=== PATIENT | female | born 1990 | race Caucasian/White ===

== ENCOUNTER → 2019-05-25 15:01 | Outpatient (BNVA) | payer MEDICARE, SELFPAY | PROVIDERS: Family Provider Nurse Practitioner Family; PCP Nurse Practitioner Family; Referring Provider Nurse Practitioner; Visit Provider Obstetrics & Gynecology Female Pelvic Medicine and Reconstructive Surgery | DX: Z30.430 Encounter for insertion of intrauterine contraceptive device (principal); N92.0 Excessive and frequent menstruation with regular cycle; N94.4 Primary dysmenorrhea; E66.9 Obesity, unspecified | CPT/HCPCS: 81025 ==

== ENCOUNTER 2020-04-25 10:20 | Emergency (ER) | payer MEDICARE, MEDICAID, SELFPAY ==
[2020-04-25 11:03] VITALS: BP 131/97; PULSE 88; RESP 16; TEMP 36.2; O2SAT 98; BMI 31.2
[2020-04-25 11:08] VITALS: BP 131/97; PULSE 88; RESP 16; O2SAT 99
--- NOTE | 2020-04-25 11:21 | W.ED.NAVMDI ---
HPI - Nausea/Vomiting/Diarrhea General: Chief complaint: Urogenital-Female Stated complaint: Unable to pee/n/v/fatigue Time Seen by Provider: 04/25/20 11:10 Source: patient Mode of arrival: ambulatory Limitations: no limitations History of Present Illness: HPI Narrative: Patient is a 29-year-old female who presents to ED today with a complaint of nausea and vomiting. Patient tells me she has not ate in a month. Patient tells me she dry heaves and vomits after eating or drinking anything. Patient tells me she does smoke marijuana twice daily as prescribed with her green card. States she is tired and fatigued all the time. She also has a complaint of urinary retention. She states she has only urinated once daily over the past 2 weeks. States she has not urinated since yesterday morning. She does not complain of dysuria or hematuria. Patient does not complain of abdominal pain currently. She is having normal bowel movements. Denies history of . MD elicited complaint: nausea, vomiting and other (urinary retention ) Onset (ago): day(s) Description of vomiting: food contents and watery Associated nausea: Yes Associated abdominal pain: No Location of pain: None Exacerbating factors: eating Context: marijuana use Associated symtoms: Reports nausea; Denies change in vision, chest pain, dysuria, fatigue, headache(s), malaise, palpitations or syncope Review of Systems Const: Denies: fever(s), chills, body aches, fatigue or malaise Eyes: Denies: change in vision or blurry vision ENMT: Denies: throat pain or odynophagia Card: Denies: chest pain, palpitations, irregular heart rhythm, edema, lightheadedness, syncope or pre-syncope Resp: Denies: dyspnea, productive cough, non-productive cough, hemoptysis or chest congestion GI: Reports: nausea and vomiting; Denies: abdominal pain, hematemesis, heartburn, diarrhea, change in bowel habits, pain on defecation, change in stool character, hematochezia, melena or white/light colored stool : Reports: difficulty voiding; Denies: flank pain, dysuria, urinary frequency, urinary urgency, dribbling, hematuria, genital lesions, vaginal odor, vaginal bleeding, vaginal discharge or pelvic pain Musc: Denies: neck pain, back pain, extremity pain, extremity swelling, joint pain or joint swelling Skin/Breast: Denies: rash Neuro: Denies: headache(s), numbness in extremities, weakness in extremities or sensory changes PFSH ED PFSH: Medical History (Updated 04/25/20 @ 14:15 by BRIAN Simpson) History of hypertension Surgical History H/O left knee surgery History of back surgery History of loop recorder Family History Mother Psychiatric illness Diabetes Stroke Hypertension Sister Psychiatric illness Grandfather No problems noted. Denies family history of Cancer Social History Smoking and tobacco status: current every day smoker cigarettes Years cigarettes smoked: 15 Second hand smoke exposure: Yes Alcohol intake: never Lives independently: Yes Household members: significant other Current gender identity: Female Special my needs: No Physical Exam Const: COMMON NORMALS: no acute distress, patient oriented x3, no limitations and alert GENERAL APPEARANCE: cooperative NUTRITIONAL APPEARANCE: obese ORIENTATION/CONSCIOUSNESS: Yes awake, Yes oriented to person, Yes oriented to place and Yes oriented to time OTHER: hard of hearing HENMT: COMMON NORMALS: normocephalic and atraumatic HEAD & SCALP: normocephalic and atraumatic Resp: COMMON NORMALS: normal respiratory effort and clear to auscultation bilaterally AUSCULTATION: clear to auscultation bilaterally Cardio: COMMON NORMALS: regular rate and regular rhythm RATE: regular rate RHYTHM: regular rhythm GI: COMMON NORMALS: Normal to inspection, nondistended, normoactive bowel sounds present, Soft to palpation, non-tender, No hepatosplenomegaly present and no masses INSPECTION: Yes normal to inspection AUSCULTATION: Yes normoactive bowel sounds PALPATION: Yes Soft to palpation and Yes No hepatosplenomegaly present : COMMON NORMALS: Yes no CVA tenderness BLADDER/KIDNEY EXAM: Yes no CVA tenderness Back/Pelvis: COMMON NORMALS: no CVA tenderness Extremity: GENERAL: Yes normal exam except as noted Neuro: BROOK[place]NN COMA SCALE: document GCS findings Brook[place]nn coma scale eye opening: Spontaneous Brook[place]nn coma scale verbal response: Orientated [place] coma scale motor response: Obey commands [place] coma scale total score: 15 COMMON NORMALS: patient oriented x3 SENSORIUM/ORIENTATION: Yes alert, Yes oriented to person, Yes oriented to place and Yes oriented to time Skin: COMMON NORMALS: no rashes or lesions noted GENERAL SKIN EXAM: no rashes or lesions noted Course Reevaluation(s): Reevaluation #1: Patient reports nausea has improved. She is requesting Sprite. Has refused urine sample. Told patient we would have to place [facility] if we cannot document she can urinate on her own-she states she will try and give urine sample now. Vital Signs: Vital signs: Vital Signs Temperature 97.2 F L 04/25/20 11:03 Pulse Rate 98 04/25/20 14:21 Respiratory Rate 16 04/25/20 14:21 Blood Pressure 131/97 04/25/20 11:08 Pulse Oximetry 94 04/25/20 14:21 MDM - Nausea/Vomiting/Diarrhea MDM Narrative: Medical decision making narrative: Patient has not had any vomiting while here. She reports her nausea improved after taking Reglan. She held down a can of Sprite without difficulty. Patient's vital signs are non-concerning. Her lab work overall is benign. 3+ blood noted in her UA however patient is currently on her menstrual cycle. She was able to urinate on her own here. Questionable for concern for cyclic vomiting syndrome related to her marijuana use. Her fatigue and tiredness could also be related to cannabinoid use. I do not see any evidence for any form of acute infection at this time. She agrees to follow-up with her PCP if symptoms persist. Lab Data: Labs: Lab Results 04/25/20 04/25/20 04/25/20 Range/Units 11:36 11:36 11:36 WBC 7.9 (4.0-10.0) 10^3/ uL RBC 5.02 (4.1-5.3) 10^6/u L Hgb 14.8 (11.5-15.3) g/dL Hct 45.5 (37.0-47.0) % MCV 90.6 (81-99) fL MCH 29.5 (28.0-34.0) pg MCHC 32.5 (30.0-36.0) g/dL RDW 13.3 (12.1-15.1) % Plt Count 290 (130-400) 10^3/c mm MPV 9.4 (7.4-10.4) fL Neut % (Auto) 67.8 % Lymph % (Auto) 24.9 % Sawyer % (Auto) 6.2 % Eos % (Auto) 0.3 % Baso % (Auto) 0.4 % Neut # (Auto) 5.39 (1.8-7.7) 10^3/u L Lymph # (Auto) 2.0 (0.8-4.8) 10^3/u L Sawyer # (Auto) 0.5 (0.2-0.9) 10^3/u L Eos # (Auto) 0.0 (0.0-0.8) 10^3/u L Baso # (Auto) 0.0 (0.0-0.1) 10^3/u L Nucleated RBC % (a uto) 0 % Nucleated RBCs # 0.0 /100WBC Sodium 137 (136-145) mmol/L Potassium 3.5 (3.5-5.1) mmol/L Chloride 109 H (98-107) mmol/L Carbon Dioxide 22 (22-29) mmol/L Anion Gap 9.5 (5-19) BUN 7 (6-20) mg/dL Creatinine 0.7 (0.5-0.9) mg/dL GFR Calculation 98.3 (90-130) mL/min Glucose 68 (65-115) mg/dL Calculated Osmolal ity 280 L (285-295) mOsm/k g Calcium 8.7 (8.5-10.5) mg/dL Total Bilirubin 0.2 (0.15-1.2) mg/dL AST 15 (0-32) U/L ALT 18 (0-33) U/L Alkaline Phosphata se 123 H (35-105) IU/L Total Protein 6.8 (6.6-8.7) g/dL Albumin 4.1 (3.5-5.2) g/dL Globulin 2.7 (1.3-4.6) g/dL Lipase 34 (13-60) U/L HCG, Qual Negative (Negative) Urine Color (Yellow) Urine Appearance (CLEAR) Urine pH (5-7) Ur Specific Gravit y (1.005-1.030) Urine Protein (Negative) Urine Glucose (UA) (Normal) Urine Ketones (Negative) Urine Blood (Negative) Urine Nitrate (Negative) Urine Bilirubin (Negative) Urine Urobilinogen (Negative) mg/dL Ur Leukocyte Bri ase (Negative) Urine RBC (0-2) /hpf Urine WBC (0-5) /hpf Ur Squamous Epith Cells (0-5) /hpf Amorphous Sediment /hpf Urine Bacteria (NONE) /hpf 04/25/20 Range/Units 13:27 WBC (4.0-10.0) 10^3/ uL RBC (4.1-5.3) 10^6/u L Hgb (11.5-15.3) g/dL Hct (37.0-47.0) % MCV (81-99) fL MCH (28.0-34.0) pg MCHC (30.0-36.0) g/dL RDW (12.1-15.1) % Plt Count (130-400) 10^3/c mm MPV (7.4-10.4) fL Neut % (Auto) % Lymph % (Auto) % Sawyer % (Auto) % Eos % (Auto) % Baso % (Auto) % Neut # (Auto) (1.8-7.7) 10^3/u L Lymph # (Auto) (0.8-4.8) 10^3/u L Sawyer # (Auto) (0.2-0.9) 10^3/u L Eos # (Auto) (0.0-0.8) 10^3/u L Baso # (Auto) (0.0-0.1) 10^3/u L Nucleated RBC % (a uto) % Nucleated RBCs # /100WBC Sodium (136-145) mmol/L Potassium (3.5-5.1) mmol/L Chloride (98-107) mmol/L Carbon Dioxide (22-29) mmol/L Anion Gap (5-19) BUN (6-20) mg/dL Creatinine (0.5-0.9) mg/dL GFR Calculation (90-130) mL/min Glucose (65-115) mg/dL Calculated Osmolal ity (285-295) mOsm/k g Calcium (8.5-10.5) mg/dL Total Bilirubin (0.15-1.2) mg/dL AST (0-32) U/L ALT (0-33) U/L Alkaline Phosphata se (35-105) IU/L Total Protein (6.6-8.7) g/dL Albumin (3.5-5.2) g/dL Globulin (1.3-4.6) g/dL Lipase (13-60) U/L HCG, Qual (Negative) Urine Color Yellow (Yellow) Urine Appearance Clear (CLEAR) Urine pH 9 H (5-7) Ur Specific Gravit y 1.015 (1.005-1.030) Urine Protein Neg (Negative) Urine Glucose (UA) Norm (Normal) Urine Ketones Negative (Negative) Urine Blood 3+ H (Negative) Urine Nitrate Negative (Negative) Urine Bilirubin Neg (Negative) Urine Urobilinogen 1 H (Negative) mg/dL Ur Leukocyte Bri ase Negative (Negative) Urine RBC 0-4 H (0-2) /hpf Urine WBC None (0-5) /hpf Ur Squamous Epith Cells 0-4 H (0-5) /hpf Amorphous Sediment Trace /hpf Urine Bacteria 2+ H (NONE) /hpf Discharge Plan Discharge Patient Disposition: Home Clinical Impression: Nausea and vomiting Qualifiers: Vomiting type: unspecified Vomiting Intractability: non-intractable Qualified Code(s): R11.2 - Nausea with vomiting, unspecified Condition: Stable Prescriptions: New Reglan 10 mg tablet 10 mg PO Q6H PRN (Reason: nausea and vomiting) Qty: 14 RF: 0 No Action bupropion HCl [Wellbutrin SR] 150 mg tablet sustained-release 12 hr 150 mg PO BID RF: 0 levothyroxine 75 mcg tablet 75 mcg PO DAILY RF: 0 venlafaxine 75 mg capsule,extended release 24hr 75 mg PO BID RF: 0 acetazolamide 500 mg capsule, extended release 1,000 mg PO BID RF: 0 hydroxyzine HCl 10 mg tablet 10 - 20 mg PO TID PRN (Reason: Anxiety) RF: 0 Discharge Orders: Discharge ED (Routine); Ordered 04/25/20 Ordered By: Tawana Ortega Referrals: Yolis Gallagher [Primary Care Provider] - Patient Instructions: Acute Nausea and Vomiting (ED), Medicinal Use of Cannabis (ED), Opioid Safety Activity Restrictions/Additional Instructions: [facility] is committed to fighting the nationwide opiate epidemic. We are providing ALL patients with information regarding opiate safety. If you received opiate pain medication during your stay or if you received a prescription for opiate pain medication-please review this handout. If not, you may disregard. Thank you. Coding Level of Care Code ED Cyber Incident Handler for Katerina Fwpedro Exam Comprehensive
[2020-04-25 11:44] LABS: Basophils % 0.4 %; Eosinophils % 0.3 %; Hematocrit 45.5 % (37.0-47.0); Hemoglobin 14.8 g/dL (11.5-15.3); Lymphocytes % 24.9 %; Mean Corpuscular HGB Conc 32.5 g/dL (30.0-36.0); Mean Corpuscular Hemoglobin 29.5 pg (28.0-34.0); Mean Corpuscular Volume 90.6 fL (81-99); Mean Platelet Volume 9.4 fL (7.4-10.4); Monocytes # 0.5 10^3/uL (0.2-0.9); Monocytes % 6.2 %; Neutrophils # 5.39 10^3/uL (1.8-7.7); Neutrophils % 67.8 %; Nucleated Red Blood Cells % 0 %; Platelet Count 290 10^3/cmm (130-400); Red Blood Count 5.02 10^6/uL (4.1-5.3); Red Cell Distribution Width 13.3 % (12.1-15.1); White Blood Count 7.9 10^3/uL (4.0-10.0)
[2020-04-25] MEDS: LORazepam 2 mg/mL INJ 1 mL 1 MG IVP (11:52)
[2020-04-25] MEDS: metoclopramide 5 mg/mL SDV 2 mL 10 MG IVP (11:52)
[2020-04-25] MEDS: sodium chloride 0.9% 1,000 ML 999 ML IV (11:53)
[2020-04-25 11:59] LABS: Alanine Aminotransferase 18 U/L (0-33); Albumin Level 4.1 g/dL (3.5-5.2); Alkaline Phosphatase 123 IU/L (35-105); Anion Gap 9.5 (5-19); Aspartate Amino Transferase 15 U/L (0-32); Blood Urea Nitrogen 7 mg/dL (6-20); Calcium 8.7 mg/dL (8.5-10.5); Carbon Dioxide 22 mmol/L (22-29); Chloride 109 mmol/L (98-107); Globulin 2.7 g/dL (1.3-4.6); Glomerular Filtration Rate 98.3 mL/min (90-130); Glucose 68 mg/dL (65-115); Lipase 34 U/L (13-60); Osmolality Calculated 280 mOsm/kg (285-295); Potassium 3.5 mmol/L (3.5-5.1); Sodium 137 mmol/L (136-145); Total Bilirubin 0.2 mg/dL (0.15-1.2); Total Protein 6.8 g/dL (6.6-8.7)
[2020-04-25 12:02] LABS: HCG, Serum Qual Negative (Negative)
[2020-04-25 14:07] LABS: Add Urine Microscopic? YES; Bilirubin Urine Neg (Negative); Blood Urine 3+ (Negative); Glucose Urine UA Norm (Normal); Ketones Urine Negative (Negative); Leukocyte Esterase Urine Negative (Negative); Nitrate Urine Negative (Negative); Protein Urine Neg (Negative); Specific Gravity, Urine 1.015 (1.005-1.030); Urine Appearance Clear (CLEAR); Urine Color Yellow (Yellow); Urobilinogen Urine 1 mg/dL (Negative); pH Urine 9 (5-7)
[2020-04-25 14:08] LABS: Add Urine Culture? No; Amorphous Sediment Urine TRACE /hpf; Bacteria Urine 2+ /hpf; RBC Urine 0-4 /hpf (0-2); Squamous Epithelial Cell Urine 0-4 /hpf (0-5)
[2020-04-25 14:21] VITALS: PULSE 98; RESP 16; O2SAT 94
== END 2020-04-25 14:23 | disposition home or self-care (01) ==
PROVIDERS: Emergency Provider Physician Assistant; Family Provider Nurse Practitioner Family; PCP Nurse Practitioner Family
DX: R11.2 Nausea with vomiting, unspecified (principal); I10 Essential (primary) hypertension; F17.210 Nicotine dependence, cigarettes, uncomplicated
CPT/HCPCS: 51798; 80053; 81001; 83690; 84703; 85025; 96361; 96374; 96375; 99283; J2060; J2765; J7030

== ENCOUNTER 2020-05-11 08:50 | Outpatient (CLI) | payer MEDICARE, MEDICAID, SELFPAY ==
--- NOTE | 2020-05-11 | XR_ITS ---
WS: [id number] PROCEDURE: XR chest 2V* [id number] CLINICAL INFORMATION: HEMPTOSIS COMPARISON: July 07 2014 FINDINGS: Heart: Normal cardiac silhouette. Lungs: Lungs are clear. No consolidation or pleural fluid. Bones: Normal visualized bony structures. XR/XR chest 2V* [id number] IMPRESSION: Normal chest
--- NOTE | 2020-05-11 09:11 | CT_ITS ---
WS: [id number] CT ABDOMEN PELVIS TECHNIQUE: Contrast-enhanced CT of the abdomen and pelvis with coronal and sagittal reformatted image s. CLINICAL INFORMATION: NAUSEA WITH VOMITING, ABNORMAL WEIGHT LOSS COMPARISON: February 2011 DLP: 1136.[address] scans at [facility] use at least one of these dose optimization techniques: automat ed exposure control; mA and/or kV adjustment per patient size (includes targeted exams where dose is matched to clinical indication); or iterative reconstruction. FINDINGS: Mild diffuse fatty infiltration of the liver. Cholecystectomy clips. Normal portal vein and splenic v ein. Normal GE junction. Lung bases are well aerated. Normal pancreas. Adrenal glands are normal. Nor mal renal parenchymal enhancement. A few small renal cysts. No hydronephrosis in either kidney. Small bilateral renal cysts. Normal caliber abdominal aorta. Previously described prominent lymph nod es in the midabdomen and right lower quadrant suspicious for mesenteric adenitis have essentially res olved. Intrauterine device is new compared to the prior examination. IUD is slightly tilted and low-l sugar. Normal sigmoid colon. No evidence of high-grade small or large bowel obstruction. Low-lying cecum rig ht lower quadrant similar to previous. Left ovarian cyst measuring 2.4 CM. Mild disc bulging L4-5 wit h mild central canal stenosis. CT/CT abdomen pelvis w con* [id number] IMPRESSION: 1. Prior postoperative changes cholecystectomy and tubal ligation. 2. Left ovarian cyst measuring 2.4 cm smaller compared to previous. 3. IUD is new since the prior examination and tilted eccentric to the right an d slightly low-lying with tip near the internal cervical os. This can be follow ed up with ultrasound. 4. Mild diffuse fatty infiltration liver. 5. Normal renal parenchymal enhancement. No hydronephrosis. Small bilateral re nal cysts. 6. No evidence of high-grade small or large bowel obstruction. No free fluid i n the pelvis. 7. Previous described mesenteric adenitis in the right lower quadrant mid abdo men has resolved. 8. No other significant findings.
[2020-05-11] MEDS: iohexol 300 mg/mL 50 mL Btl PO (09:14)
[2020-05-11] MEDS: iohexol 300 mg/mL 100 mL Btl IV (10:36)
== END 2020-05-11 08:51 | disposition home or self-care (01) ==
PROVIDERS: PCP Nurse Practitioner Family; Visit Provider Nurse Practitioner Family
DX: R11.2 Nausea with vomiting, unspecified (principal); R63.4 Abnormal weight loss; R04.2 Hemoptysis; K76.0 Fatty (change of) liver, not elsewhere classified; N83.202 Unspecified ovarian cyst, left side; Z90.49 Acquired absence of other specified parts of digestive tract
CPT/HCPCS: 71046; 74177; Q9967

== ENCOUNTER → 2020-10-13 14:58 | Outpatient (BNVA) | payer OTHER, MEDICAID, SELFPAY | PROVIDERS: PCP Nurse Practitioner Family; Visit Provider Obstetrics & Gynecology | DX: Z30.431 Encounter for routine checking of intrauterine contraceptive device (principal) | CPT/HCPCS: 87070; 87205 ==

== ENCOUNTER 2020-12-24 15:51 | Emergency (ER) | payer OTHER, MEDICAID, SELFPAY ==
[2020-12-24 17:34] VITALS: BP 108/74; PULSE 76; RESP 18; O2SAT 98; BMI 36.1
--- NOTE | 2020-12-24 17:37 | XRR_ITS ---
PROCEDURE INFORMATION: Exam: XR Chest Exam date and time: 12/24/2020 5:37 PM Age: 30 years old Clinical indication: Dyspnea TECHNIQUE: Imaging protocol: XR of the chest. Views: 1 view. COMPARISON: CR XR chest 2V* [id number] 05/11/2020 10:57 AM FINDINGS: Tubes, catheters and devices: Loop recorder device overlies the lower left hemithorax. Lungs: Unremarkable. No consolidation. Pleural spaces: Unremarkable. No pleural effusion. No pneumothorax. Heart/Mediastinum: Unremarkable. No cardiomegaly. Bones/joints: Unremarkable. XR/XR chest 1V portable [id number] IMPRESSION: No evidence for acute cardiopulmonary disease. Radiation Dose CTDIVOL = (mGy): DLP = (mGy-cm)
--- NOTE | 2020-12-24 17:47 | ED_ITS ---
HPI - COVID General: Chief Complaint: COVID symptoms Stated Complaint: POSS COVID +/SOB/COUGH Time Seen by Provider: 12/24/20 17:46 Triage information: Has fever, cough or shortness of breath . Exposure to COVID + person last 14 days History of Present Illness: HPI Narrative: Patient has had illness since Friday. Patient has had persistent cough and congestion. Patient's daughter tested positive for COVID-19 on . Patient did have a PCR test done today that was sent out from the urgent care clinic. Patient came into the emergency room due to her persistent coughing. Patient appears mildly unwell and nontoxic. Skin is warm and dry. No apparent distress is noted. MD complaint: reported COVID exposure Prior covid testing: yes, results pending at [facility] location COVID 19 common symptoms: positive cough, non-productive cough and fatigue COVID Results: SARS-CoV-2 Antigen (Rapid) Negative (Negative) 12/24/20 18:08 12/24/20 SARS-CoV-2 RNA (RT-PCR) Pending 12/24/20 11:03 12/24/20 Review of Systems General: Reports: 10 or more systems reviewed and unremarkable except in HPI and below Const: Reports: fatigue Resp: Reports: non-productive cough PFSH ED PFSH: Medical History History of hypertension Surgical History H/O left knee surgery History of back surgery History of loop recorder Family History Mother Psychiatric illness Diabetes Stroke Hypertension Sister Psychiatric illness Grandfather No problems noted. Denies family history of Cancer Social History Smoking and tobacco status: current every day smoker cigarettes Years cigarettes smoked: 15 Alcohol intake: never Physical Exam Const: COMMON NORMALS: no acute distress and patient oriented x3 GENERAL APPEARANCE: cooperative HENMT: COMMON NORMALS: normocephalic, TM's normal bilaterally and Normal external nose present HEAD & SCALP: normal to inspection and normocephalic NOSE: Normal external nose present TYMPANIC MEMBRANE: TM's normal bilaterally MOUTH: Normal oral and palatal mucosa present THROAT: posterior oropharynx normal Eye: GENERAL EYE: appearance normal, both eyes and all related structures Neck/C-Spine: COMMON NORMALS: full ROM Lymph: LYMPHATIC: no lymphadenopathy noted Chest: COMMONS NORMALS: normal inspection of the chest Resp: COMMON NORMALS: normal respiratory effort EFFORT & INSPECTION: Yes able to speak in complete sentences Cardio: COMMON NORMALS: regular rate and regular rhythm RATE: regular rate RHYTHM: regular rhythm GI: COMMON NORMALS: non-tender Extremity: COMMON NORMALS: normal to inspection Neuro: COMMON NORMALS: patient oriented x3 and moves all extremities Psych: COMMON NORMALS: mental status grossly normal and cooperative Skin: COMMON NORMALS: no rashes or lesions noted GENERAL SKIN EXAM: no rashes or lesions noted Course Vital Signs: Vital signs: Vital Signs Pulse Rate 72 12/24/20 18:15 Respiratory Rate 18 12/24/20 17:34 Blood Pressure 108/74 12/24/20 17:34 Pulse Oximetry 98 12/24/20 18:21 MDM - COVID MDM Narrative: Medical decision making narrative: 30-year-old female comes in today for complaints of cough and wheezing. Patient is concerned that she may have COVID-19. Patient appears mildly unwell but not toxic. Patient was screen ed at urgent care and has a outstanding PCR test. Patient was started on some albuterol. On exam lungs are clear to auscultation except for occasional expiratory wheeze. Patient does smoke routinely. Skin is warm and dry. Vital signs are normal. Differential diagnosis includes not limited to COVID-19, pneumonia, bronchitis. Chest x-ray noted no signs of pneumonia. COVID-19 antigen test was negative. Reviewed exam with patient recommended awaiting PCR COVID-19 test for final diagnosis. Encourage patient to drink plenty of fluids and treat for bronchitis. Patient stated understanding and agreed to plan. Lab Data: Labs: Lab Results 12/24/20 18:08 SARS-CoV-2 Ag (Rap id) Negative (Negative) COVID Results: SARS-CoV-2 Antigen (Rapid) Negative (Negative) 12/24/20 18:08 12/24/20 SARS-CoV-2 RNA (RT-PCR) Pending 12/24/20 11:03 12/24/20 Discharge Plan Discharge Patient Disposition: Home Clinical Impression: Bronchitis Condition: Stable Prescriptions: No Action albuterol sulfate [Ventolin HFA] 90 mcg/actuation HFA aerosol inhaler 2 puff inhalation Q6H PRN (Reason: shortness of breath or wheezing) Qty: 8.5 RF: 0 levothyroxine 75 mcg tablet 75 mcg PO DAILY RF: 0 prednisone 20 mg tablet 40 mg PO DAILY 5 Days Qty: 10 RF: 0 venlafaxine 75 mg capsule,extended release 24hr 75 mg PO BID RF: 0 acetazolamide 500 mg capsule, extended release 1,000 mg PO BID RF: 0 Discharge Orders: Discharge ED (Routine); Ordered 12/24/20 Ordered By: Antonio Ritter Referrals: Olena Zamora FNP [Primary Care Provider] - Discharge Diet: Usual diet Discharge Activity: Increase activity as tolerated Patient Instructions: Acute Bronchitis (ED), Opioid Safety Activity Restrictions/Additional Instructions: Use albuterol as needed for shortness of breath and cough. Drink plenty of water. Follow-up with primary care as needed. Return to the ED for new concerns. Stand Alone Forms: Work/School Release Coding Level of Care Code ED Utility Gelatin Maker for Otisg Fwd Exam Comprehensive
[2020-12-24 18:15] VITALS: PULSE 72; O2SAT 97
[2020-12-24 18:21] VITALS: O2SAT 98
[2020-12-24 18:37] LABS: SARS Covid-2 Antigen Negative (Negative)
[2020-12-24 19:28] VITALS: BP 116/74; PULSE 74; RESP 18; O2SAT 98
== END 2020-12-24 19:25 | disposition home or self-care (01) ==
PROVIDERS: Emergency Provider Nurse Practitioner Family; PCP Nurse Practitioner Family
DX: J40 Bronchitis, not specified as acute or chronic (principal); Z20.822 Contact with and (suspected) exposure to COVID-19
CPT/HCPCS: 71045; 87426; 87635; 99282

== ENCOUNTER → 2021-03-11 19:43 | Outpatient (BNVA) | payer OTHER, MEDICAID, SELFPAY | PROVIDERS: PCP Nurse Practitioner Family; Visit Provider Nurse Practitioner | DX: Z20.822 Contact with and (suspected) exposure to COVID-19 (principal) | CPT/HCPCS: 87635 ==

== ENCOUNTER 2021-07-16 09:13 | Outpatient (CLI) | payer OTHER, MEDICAID, SELFPAY ==
--- NOTE | 2021-07-16 09:26 | XR_ITS ---
WS: [id number] LUMBAR SPINE: 5 VIEWS TECHNIQUE: AP, obliques, lateral and L5-S1 spot. HISTORY: LOW BACK PAIN COMPARISON: 11/30/2015 Very minimal LEFT curvature lumbar spine is similar to the prior examinations. Pedicles are all ident ified. Posterior alignment is normal. No fracture. No neuroforaminal stenosis or osteophyte encroachm ent. No loss of disc space or vertebral body height. Mild bilateral SI joint sclerosis. Increasing sclerosis RIGHT SI joint. Progressed since the prior st udy. Prior cholecystectomy. XR/XR lumbar spine min 4V [id number] IMPRESSION: 1. Minimal levoscoliosis lumbar spine. Similar to prior studies. 2. Increasing sclerosis and narrowing involving the RIGHT SI joint and to a le sser extent the LEFT SI joint. Correlate for possible psoriatic arthritis or in flammatory arthritides. 3. Prior cholecystectomy.
--- NOTE | 2021-07-16 09:32 | XR_ITS ---
WS: [id number] LEFT KNEE: 3 VIEW(S) TECHNIQUE: AP, oblique(s) and lateral. HISTORY: PAIN IN LEFT KNEE COMPARISON: 05/28/2011 No fracture or dislocation. Mild tricompartment osteoarthritis and joint space narrowing with marginal osteophytes. Mild valgus d eformity. No joint effusion. No soft tissue abnormality. XR/XR knee LT 3V* [id number] IMPRESSION: Mild tricompartment osteoarthritis.
== END 2021-07-16 09:14 | disposition home or self-care (01) ==
PROVIDERS: PCP Nurse Practitioner Family; Visit Provider Nurse Practitioner Family
DX: M54.50 Low back pain, unspecified (principal); M25.562 Pain in left knee
CPT/HCPCS: 72110; 73562

== ENCOUNTER → 2021-11-22 11:06 | Outpatient (BNVA) | payer MEDICARE, MEDICAID, SELFPAY | PROVIDERS: PCP Nurse Practitioner Family; Visit Provider Internal Medicine | DX: R76.8 Other specified abnormal immunological findings in serum (principal); M25.50 Pain in unspecified joint; I51.9 Heart disease, unspecified; R94.31 Abnormal electrocardiogram [ECG] [EKG]; Z11.59 Encounter for screening for other viral diseases | CPT/HCPCS: 80053; 81003; 82550; 82607; 82784; 83516; 83735; 84100; 84443; 85025; 85613; 85651; 85730; 86140; 86146; 86147; 86148; 86160; 86162; 86235; 86255; 86376; 86431; 86704; 86803; 87340; 99204 ==

== ENCOUNTER 2021-11-23 07:49 | Outpatient (CLI) | payer MEDICARE, MEDICAID, SELFPAY ==
--- NOTE | 2021-11-23 08:00 | MR_ITS ---
WS: [id number] MRI HEAD WITHOUT CONTRAST TECHNIQUE: Sagittal T1, T2 axial, T2 axial FLAIR, axial and coronal T1 images, axial susceptibility w eighted imaging, axial diffusion weighted images, and coronal T2 images were obtained. CLINICAL INFORMATION: R56.9 - Unspecified convulsions COMPARISON: CT 3 019 And MRI 2018 FINDINGS: No evidence of restricted diffusion to suggest acute ischemia. Ventricles system and basal cisterns a re patent. Normal mckeon-white differentiation. Normal posterior fossa. Normal vascular flow voids at t he skull base. No extra-axial fluid collections. No evidence of mass or mass effect. A few tiny foci of T2 hyperintensity in the subcortical white matter better visualized on the MRI in 2018 is unchange d. This is of doubtful clinical significance. No evidence of progression. Mild mucosal thickening in the ethmoid air cells. Mastoid air cells are well aerated. No hemosiderin on the susceptibly weighted images. Normal optic chiasm and pituitary infundibulum. Normal cavernous sinuses and Meckel's cave. Temporal lobes and hippocampal formations are normal in appearance. Normal cerebellar tonsils. Inferior frontal lobes and cingulate gyrus appear normal. MR/MR head wo con* [id number] IMPRESSION: No remarkable changes compared to the MRI in 2018. 1. No evidence of restricted diffusion to suggest acute ischemia. 2. No suspicious intracranial signal abnormalities. Normal mckeon-white differen tiation. 3. Paranasal sinuses and mastoid air cells are well aerated. Mild mucosal thic kening in the ethmoid air cells. 4. No hemosiderin on the susceptibly weighted images. 5. Temporal lobes and hippocampal formations are normal in appearance. No evid ence of mesial temporal sclerosis.
== END 2021-11-23 07:50 | disposition home or self-care (01) ==
PROVIDERS: PCP Nurse Practitioner Family; Visit Provider Specialist
DX: R56.9 Unspecified convulsions (principal)
CPT/HCPCS: 70551

== ENCOUNTER → 2021-12-03 10:13 | Outpatient (BNVA) | payer MEDICARE, MEDICAID, SELFPAY | PROVIDERS: PCP Nurse Practitioner Family; Visit Provider Specialist | DX: G43.009 Migraine without aura, not intractable, without status migrainosus (principal); F41.9 Anxiety disorder, unspecified; F43.10 Post-traumatic stress disorder, unspecified; R20.0 Anesthesia of skin; J45.909 Unspecified asthma, uncomplicated; X58.XXXS Exposure to other specified factors, sequela; F17.200 Nicotine dependence, unspecified, uncomplicated | CPT/HCPCS: 99214 ==

== ENCOUNTER → 2021-12-19 09:42 | Outpatient (BNVA) | payer MEDICARE, MEDICAID, SELFPAY | PROVIDERS: PCP Nurse Practitioner Family; Visit Provider Internal Medicine | DX: M54.50 Low back pain, unspecified (principal); R20.0 Anesthesia of skin; Z79.899 Other long term (current) drug therapy; R76.8 Other specified abnormal immunological findings in serum; M25.50 Pain in unspecified joint; G43.711 Chronic migraine without aura, intractable, with status migrainosus; E83.39 Other disorders of phosphorus metabolism; R07.81 Pleurodynia | CPT/HCPCS: 71046; 72040; 99214 ==

== ENCOUNTER 2022-01-12 08:20 | Emergency (ER) | payer MEDICARE, MEDICAID, SELFPAY ==
--- NOTE | 2022-01-12 08:32 | XRR_ITS ---
PROCEDURE INFORMATION: Exam: XR Chest Exam date and time: 01/12/2022 9:00 AM Age: 31 years old Clinical indication: Pain; Chest pressure; Additional info: Cp TECHNIQUE: Imaging protocol: Radiologic exam of the chest. Views: 1 view. COMPARISON: CR XR chest 2V* [id number] 12/19/2021 9:42 AM FINDINGS: Tubes, catheters and devices: Loop recording device projects over the left hemithorax. Lungs: Unremarkable. No consolidation. Pleural spaces: Unremarkable. No pleural effusion. No pneumothorax. Heart/Mediastinum: Unremarkable. No cardiomegaly. Bones/joints: Unremarkable. XR/XR chest 1V portable [id number] IMPRESSION: No acute cardiopulmonary abnormality.
[2022-01-12 08:33] VITALS: BP 142/76; PULSE 79; RESP 18; TEMP 36.6; O2SAT 100
--- NOTE | 2022-01-12 08:33 | W.ED.CHESTPA ---
HPI - Chest Pain General: Chief Complaint: Chest Pain Stated Complaint: cp Time Seen by Provider: 01/12/22 08:29 Source: patient Mode of arrival: ambulatory Limitations: no limitations History of Present Illness: 31-year-old female who states she is having chest pain for last 2 days. States the pain is sharp in nature to her right chest she denies any worsening improving factors. She has a history of long QT prolongation. She denies any diaphoresis denies any vomiting denies any diarrhea denies any radiation of her pain. Associated symptoms: Deny abdominal pain, dyspnea, fever(s), nausea or vomiting Review of Systems Const: Denies: fever(s), chills, body aches or change in appetite Eyes: Denies: blurry vision or eye discomfort ENMT: Denies: throat pain or dental pain Card: Reports: chest pain Resp: Denies: dyspnea GI: Denies: abdominal pain, nausea, vomiting or diarrhea : Denies: dysuria Musc: Denies: neck pain or back pain Skin/Breast: Denies: rash Neuro: Denies: headache(s) Psych: Denies: depression Gee/Lymph: Denies: easy bruising All/Imm: Denies: urticaria PFSH ED PFSH: Medical History History of hypertension Psychiatric care Surgical History H/O left knee surgery History of back surgery History of loop recorder Family History Mother Psychiatric illness Diabetes Stroke Hypertension Sister Psychiatric illness Grandfather No problems noted. 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 Pets and animals: Yes Physical Exam Const: COMMON NORMALS: no acute distress, patient oriented x3 and healthy appearing HENMT: COMMON NORMALS: normocephalic and atraumatic HEAD & SCALP: normocephalic and atraumatic Eye: COMMON NORMALS: Equal, round and reactive pupils present and EOMs intact bilaterally PUPIL: Yes Equal, round and reactive pupils present Neck/C-Spine: COMMON NORMALS: full ROM and supple Chest: COMMONS NORMALS: normal inspection of the chest and normal palpation of entire chest wall Resp: COMMON NORMALS: normal respiratory effort, No retractions, No use of accessory muscles and clear to auscultation bilaterally AUSCULTATION: clear to auscultation bilaterally Cardio: COMMON NORMALS: regular rate, regular rhythm and No murmurs present (Cardio) RATE: regular rate RHYTHM: regular rhythm GI: COMMON NORMALS: Normal to inspection, nondistended, normoactive bowel sounds present, Soft to palpation, non-tender and no masses PALPATION: Yes Soft to palpation Extremity: COMMON NORMALS: normal to inspection and full ROM Neuro: COMMON NORMALS: patient oriented x3, moves all extremities and no focal motor deficits Psych: COMMON NORMALS: mental status grossly normal, Normal thought process present and cooperative THOUGHT PROCESS: Normal thought process present Skin: COMMON NORMALS: no rashes or lesions noted and no wounds GENERAL SKIN EXAM: no rashes or lesions noted Course Vital Signs: Vital signs: Vital Signs Temperature 97.9 F 01/12/22 08:33 Pulse Rate 66 01/12/22 09:18 Respiratory Rate 23 H 01/12/22 09:18 Blood Pressure 125/88 01/12/22 09:18 Pulse Oximetry 98 01/12/22 09:18 Oxygen Delivery Me thod 01/12/22 09:18 MDM - Chest Pain Medical Decision Making Patient presents here with foot pain likely from gout she has no new injuries her x-rays here are normal we will place her on colchicine patient is to follow-up PCP and return if worsening. Lab Data : 01/12/22 08:50 01/12/22 08:50 Laboratory Results WBC 7.4 10^3/uL (4.0-10.0) 01/12/22 08:50 RBC 5.12 10^6/uL (4.1-5.3) 01/12/22 08:50 Hgb 14.4 g/dL (11.5-15.3) 01/12/22 08:50 Hct 44.6 % (37.0-47.0) 01/12/22 08:50 MCV 87.1 fl (81-99) 01/12/22 08:50 MCH 28.1 pg (28.0-34.0) 01/12/22 08:50 MCHC 32.3 g/dL (30.0-36.0) 01/12/22 08:50 RDW 13.8 % (12.1-15.1) 01/12/22 08:50 Plt Count 261 10^3/cmm (130-400) 01/12/22 08:50 MPV 9.6 fL (7.4-10.4) 01/12/22 08:50 Neut % (Auto) 67.1 % 01/12/22 08:50 Lymph % (Auto) 26.3 % 01/12/22 08:50 [place] % (Auto) 5.8 % 01/12/22 08:50 Eos % (Auto) 0.0 % 01/12/22 08:50 Baso % (Auto) 0.4 % 01/12/22 08:50 Neut # (Auto) 4.99 10^3/uL (1.8-7.7) 01/12/22 08:50 Lymph # (Auto) 2.0 10^3/uL (0.8-4.8) 01/12/22 08:50 [place] # (Auto) 0.4 10^3/uL (0.2-0.9) 01/12/22 08:50 Eos # (Auto) 0.0 10^3/uL (0.0-0.8) 01/12/22 08:50 Baso # (Auto) 0.0 10^3/uL (0.0-0.1) 01/12/22 08:50 Nucleated RBC % (auto) 0 % 01/12/22 08:50 Nucleated RBCs # 0.0 /100WBC 01/12/22 08:50 Sodium 139 mmol/L (136-145) 01/12/22 08:50 Potassium 3.6 mmol/L (3.5-5.1) 01/12/22 08:50 Chloride 106 mmol/L (98-107) 01/12/22 08:50 Carbon Dioxide 21 mmol/L (22-29) L 01/12/22 08:50 Anion Gap 15.6 (5-19) 01/12/22 08:50 BUN 7 mg/dL (6-20) 01/12/22 08:50 Creatinine 0.7 mg/dL (0.5-0.9) 01/12/22 08:50 GFR Calculation 97.0 mL/min (90-130) 01/12/22 08:50 Glucose 82 mg/dL (65-115) 01/12/22 08:50 Calculated Osmolality 285 mOsm/kg (285-295) 01/12/22 08:50 Calcium 9.2 mg/dL (8.5-10.5) 01/12/22 08:50 Total Bilirubin 0.5 mg/dL (0.15-1.2) 01/12/22 08:50 AST 13 U/L (0-32) 01/12/22 08:50 ALT 12 U/L (0-33) 01/12/22 08:50 Alkaline Phosphatase 120 U/L (35-105) H 01/12/22 08:50 Troponin T Baseline 6 ng/L (0-10) 01/12/22 08:50 Total Protein 6.9 g/dL (6.6-8.7) 01/12/22 08:50 Albumin 4.4 g/dL (3.5-5.2) 01/12/22 08:50 Globulin 2.5 g/dL (1.3-4.6) 01/12/22 08:50 Lipase 23 U/L (13-60) 01/12/22 08:50 EKG Data EKG 1: I personally reviewed and interpreted this EKG as follows: EKG interpretation date: 01/12/22 EKG interpretation time: 08:50 Interpretation: nsr hr [address] or t wave abnormalities qrs 94 qtc 459 Discharge Plan Discharge Patient Disposition: Home Clinical Impression: Chest pain Condition: Stable Prescriptions: No Action levothyroxine 75 mcg tablet 75 mcg PO DAILY topiramate 100 mg tablet See Rx Instructions .ROUTE .COMPLEX Qty: 90 0RF Dose Instruction: TAKE 1 TABLET(100 MG) BY MOUTH DAILY Rx Instructions: TAKE 1 TABLET(100 MG) BY MOUTH DAILY propranolol 10 mg tablet 10 mg PO BID 90 Days Qty: 180 3RF albuterol sulfate [Ventolin HFA] 90 mcg/actuation HFA aerosol inhaler 2 puff inhalation Q6H PRN (Reason: shortness of breath or wheezing) Qty: 8.5 0RF bupropion HCl [Wellbutrin SR] 200 mg tablet sustained-release 12 hr 200 mg PO DAILY potassium, sodium phosphates [Phos-NaK] 280-160-250 mg powder in packet 1 packet PO QID Qty: 30 0RF Discharge Orders: Discharge ED (Routine); Ordered 01/12/22 Ordered By: Brittany Capellan Referrals: Zamora,Olena, TANK CALIBRATOR [Primary Care Provider] - Discharge Diet: Advance as tolerated Discharge Activity: Resume usual activity Patient Instructions: Chest Pain (ED) Coding Level of Care Code ED Commercial Accountant for Chg Fwd Exam Comprehensive
--- NOTE | 2022-01-12 08:50 | ECG_ITS ---
[facility] Test Date: 2022-01-12 Pat Name: Dory Howard Department: Room: Gender: Female High Lighter: : 1990 Requested By: Brittany Capellan Order Number: [id number] Jason MD: Theresa Marin M.D. Measurements Intervals [place] Rate: 86 P: 72 MA: 128 QRS: 75 QRSD: 94 T: 82 QT: 415 QTc: 499 Interpretive Statements SINUS RHYTHM WITH SINUS ARRHYTHMIA NONSPECIFIC T-WAVE ABNORMALITY Compared to ECG 10/19/2014 16:25:10 T-wave abnormality now present Prolonged QT interval no longer present Electronically Signed On 01-12-2022 10:50:27 CDT by Theresa Marin M.D. [id number]
[2022-01-12 09:05] VITALS: RESP 14
[2022-01-12] MEDS: HYDROmorphone 1 mg/mL INJ 1 mL IVP (09:05)
[2022-01-12 09:06] LABS: Basophils % 0.4 %; Hematocrit 44.6 % (37.0-47.0); Hemoglobin 14.4 g/dL (11.5-15.3); Lymphocytes % 26.3 %; Mean Corpuscular HGB Conc 32.3 g/dL (30.0-36.0); Mean Corpuscular Hemoglobin 28.1 pg (28.0-34.0); Mean Corpuscular Volume 87.1 fl (81-99); Mean Platelet Volume 9.6 fL (7.4-10.4); Monocytes # 0.4 10^3/uL (0.2-0.9); Monocytes % 5.8 %; Neutrophils # 4.99 10^3/uL (1.8-7.7); Neutrophils % 67.1 %; Nucleated Red Blood Cells % 0 %; Platelet Count 261 10^3/cmm (130-400); Red Blood Count 5.12 10^6/uL (4.1-5.3); Red Cell Distribution Width 13.8 % (12.1-15.1); White Blood Count 7.4 10^3/uL (4.0-10.0)
[2022-01-12] MEDS: ondansetron 2 mg/ML SDV 2 mL 4 MG IVP (09:06)
[2022-01-12 09:18] VITALS: BP 125/88; PULSE 66; RESP 23; O2SAT 98
[2022-01-12 09:33] LABS: Alanine Aminotransferase 12 U/L (0-33); Albumin Level 4.4 g/dL (3.5-5.2); Alkaline Phosphatase 120 U/L (35-105); Anion Gap 15.6 (5-19); Aspartate Amino Transferase 13 U/L (0-32); Blood Urea Nitrogen 7 mg/dL (6-20); Calcium 9.2 mg/dL (8.5-10.5); Carbon Dioxide 21 mmol/L (22-29); Chloride 106 mmol/L (98-107); Globulin 2.5 g/dL (1.3-4.6); Glucose 82 mg/dL (65-115); Lipase 23 U/L (13-60); Osmolality Calculated 285 mOsm/kg (285-295); Potassium 3.6 mmol/L (3.5-5.1); Sodium 139 mmol/L (136-145); Total Bilirubin 0.5 mg/dL (0.15-1.2); Total Protein 6.9 g/dL (6.6-8.7)
[2022-01-12 09:34] LABS: Troponin(5th) Baseline 6 ng/L (0-10)
[2022-01-12 09:50] VITALS: BP 120/61; PULSE 68; RESP 20; O2SAT 99
== END 2022-01-12 09:53 | disposition home or self-care (01) ==
PROVIDERS: Emergency Provider Emergency Medicine; PCP Nurse Practitioner Family
DX: R07.9 Chest pain, unspecified; F17.210 Nicotine dependence, cigarettes, uncomplicated
CPT/HCPCS: 71045; 80053; 83690; 84484; 85025; 93005; 96374; 96375; 99285; J1170; J2405

== ENCOUNTER → 2022-01-15 09:47 | Outpatient (BNVA) | payer MEDICARE, MEDICAID, SELFPAY | PROVIDERS: PCP Nurse Practitioner Family; Visit Provider Anesthesiology Pain Medicine | DX: M54.50 Low back pain, unspecified (principal); M79.604 Pain in right leg; M79.605 Pain in left leg; F17.210 Nicotine dependence, cigarettes, uncomplicated | CPT/HCPCS: 99213 ==

== ENCOUNTER 2022-01-29 17:17 | Inpatient (IN) | payer MEDICARE, MEDICAID, SELFPAY ==
[2022-01-29 17:33] VITALS: BP 154/82; PULSE 87; RESP 18; TEMP 36.8; O2SAT 97; BMI 31.5
--- NOTE | 2022-01-29 17:34 | ECG_ITS ---
[facility] Test Date: 2022-01-29 Pat Name: Dory Howard Department: Room: Gender: Female Exercise Teacher: : 1990 Requested By: Anup Larios Order Number: [id number] Jason MD: Nichole Lopez M.D. Measurements Intervals [place] Rate: 94 P: 66 IL: 121 QRS: 50 QRSD: 82 T: 60 QT: 377 QTc: 471 Interpretive Statements SINUS RHYTHM WITH SINUS ARRHYTHMIA POSSIBLE LEFT ATRIAL ENLARGEMENT [-0.1mV P-WAVE IN V1/V2] MINIMAL ST DEPRESSION [0.025+ mV ST DEPRESSION] Compared to ECG 01/12/2022 08:50:55 ST (T wave) deviation now present T-wave abnormality no longer present Electronically Signed On 01-29-2022 20:42:11 CYLINDER WORKER by Nichole Lopez M.D. [email or web address].[email or web address]/[id number]
[2022-01-29 18:03] LABS: Basophils % 0.4 %; Hematocrit 44.9 % (37.0-47.0); Hemoglobin 15.3 g/dL (11.5-15.3); Lymphocytes # 2.8 10^3/uL (0.8-4.8); Lymphocytes % 25.4 %; Mean Corpuscular HGB Conc 34.1 g/dL (30.0-36.0); Mean Corpuscular Hemoglobin 29.1 pg (28.0-34.0); Mean Corpuscular Volume 85.5 fl (81-99); Mean Platelet Volume 9.3 fL (7.4-10.4); Monocytes # 0.7 10^3/uL (0.2-0.9); Monocytes % 6.7 %; Neutrophils # 7.35 10^3/uL (1.8-7.7); Neutrophils % 67.2 %; Nucleated Red Blood Cells % 0 %; Platelet Count 320 10^3/cmm (130-400); Red Blood Count 5.25 10^6/uL (4.1-5.3); Red Cell Distribution Width 13.8 % (12.1-15.1); White Blood Count 10.9 10^3/uL (4.0-10.0)
[2022-01-29 18:18] LABS: Alanine Aminotransferase 25 U/L (0-33); Albumin Level 4.2 g/dL (3.5-5.2); Alkaline Phosphatase 121 U/L (35-105); Anion Gap 15.2 (5-19); Aspartate Amino Transferase 23 U/L (0-32); Blood Urea Nitrogen 7 mg/dL (6-20); Calcium 9.3 mg/dL (8.5-10.5); Carbon Dioxide 22 mmol/L (22-29); Chloride 107 mmol/L (98-107); Globulin 3.4 g/dL (1.3-4.6); Glomerular Filtration Rate 83.1 mL/min (90-130); Glucose 83 mg/dL (65-115); Osmolality Calculated 289 mOsm/kg (285-295); Potassium 3.2 mmol/L (3.5-5.1); Sodium 141 mmol/L (136-145); Total Bilirubin 0.6 mg/dL (0.15-1.2); Total Protein 7.6 g/dL (6.6-8.7)
[2022-01-29 18:19] LABS: Acetaminophen < 5.0 ug/mL (10-30); Alcohol Level < 10 mg/dL (0-10); Salicylate < 0.3 mg/dL (3-10)
--- NOTE | 2022-01-29 18:34 | PC.NURSE ---
Pt was dressed in paper scrubs, pt is talking to herself in the room
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
[2022-01-29] MEDS: potassium bicarb 25 mEq Tablet 50 MEQ PO (19:35)
[2022-01-29] MEDS: OLANZapine 10 mg ODT PO (19:36)
[2022-01-29 20:00] LABS: Influenza A by IFA negative (Negative); Influenza B by IFA negative (Negative)
[2022-01-29 20:02] LABS: SARS Covid-2 Antigen negative (Negative)
[2022-01-29 20:58] LABS: HCG Qualitative Urine. Negative (Negative)
[2022-01-29 21:16] LABS: Amphetamines Screen Urine Negative (Negative); Barbiturates Screen Urine Negative (Negative); Benzodiazepines Screen Urine Negative (Negative); Cocaine Screen Urine Negative (Negative); Opiate Screen Urine Negative (Negative); PCP Screen Urine Negative (Negative); THC Screen Urine Positive (Negative)
[2022-01-29 21:28] LABS: Blood Urine 3+ (Negative); Glucose Urine UA Norm (Normal); Ketones Urine 1+ (Negative); Protein Urine 1+ (Negative); Urine Appearance Cloudy (CLEAR); Urine Color Amber (Yellow); pH Urine 6.5 (5-7)
[2022-01-29 21:30] LABS: Add Urine Microscopic? YES; Bacteria Urine TRACE /hpf; Bilirubin Urine Neg (Negative); Leukocyte Esterase Urine Trace (Negative); Nitrate Urine Negative (Negative); RBC Urine TOO NUMEROUS TO CNT /hpf (0-2); Squamous Epithelial Cell Urine 0-4 /hpf (0-5); Urobilinogen Urine 1 mg/dL (Negative); WBC Urine 0-4 /hpf (0-5)
[2022-01-29 21:31] LABS: Add Urine Culture? No
[2022-01-29 22:00] VITALS: BP 119/81; PULSE 102; RESP 16; TEMP 36.9; O2SAT 94
[2022-01-29] MEDS: levothyroxine 150 mcg Tablet 75 MCG PO (22:00)
[2022-01-29] MEDS: topiramate 100 mg Tablet PO (22:01)
[2022-01-29] MEDS: buPROPion SR (12 HR) 100 mg Tablet 200 MG PO (22:01)
[2022-01-29] MEDS: hyDROXYzine 25 mg Capsule PO (22:01)
[2022-01-30 06:00] VITALS: PULSE 96; RESP 16; O2SAT 95
[2022-01-30] MEDS: cetylpyridinium Lozenge 1 EACH MUCOUS MEM ×2 (10:27→16:33)
[2022-01-30 10:30] VITALS: BP 111/73; PULSE 90; RESP 18; TEMP 36.6; O2SAT 98
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
[2022-01-30] MEDS: blistex lip oint 7 gm Tube 1 APPLIC TOPICAL (12:04)
[2022-01-30 14:00] VITALS: RESP 18
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
[2022-01-30] MEDS: buPROPion SR (12 HR) 100 mg Tablet 200 MG PO (18:09)
[2022-01-30 18:28] VITALS: PULSE 90; RESP 18; O2SAT 98
[2022-01-30 20:14] VITALS: BP 111/67; PULSE 91; RESP 15; O2SAT 97
[2022-01-31 06:00] VITALS: RESP 18
[2022-01-31] MEDS: cetylpyridinium Lozenge 1 EACH MUCOUS MEM ×5 (08:34→23:13)
[2022-01-31] MEDS: topiramate 100 mg Tablet PO ×2 (09:42→20:13)
[2022-01-31] MEDS: buPROPion SR (12 HR) 100 mg Tablet 200 MG PO ×2 (09:42→18:03)
[2022-01-31] MEDS: propranolol 20 mg Tablet 10 MG PO ×2 (09:42→20:13)
[2022-01-31] MEDS: levothyroxine 75 mcg Tablet PO (09:42)
[2022-01-31 14:00] VITALS: BP 127/91; PULSE 75; RESP 17; O2SAT 97
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
[2022-01-31] MEDS: blistex lip oint 7 gm Tube 1 APPLIC TOPICAL (16:43)
[2022-01-31] MEDS: benzocaine 20% 7 gm 1 APPLIC MUCOUS MEM (16:43)
[2022-01-31 20:38] VITALS: BP 127/77; PULSE 91; RESP 17; TEMP 36.7; O2SAT 98
[2022-02-01 06:00] VITALS: BP 106/78; PULSE 78; RESP 16; TEMP 36.4; O2SAT 96
[2022-02-01] MEDS: cetylpyridinium Lozenge 1 EACH MUCOUS MEM ×4 (06:48→22:57)
[2022-02-01] MEDS: buPROPion XL (24 HR) 300 mg Tablet PO (08:37)
[2022-02-01] MEDS: propranolol 20 mg Tablet 10 MG PO ×2 (08:37→19:55)
[2022-02-01] MEDS: levothyroxine 75 mcg Tablet PO (08:38)
[2022-02-01 13:30] VITALS: BP 136/76; PULSE 79; RESP 16; TEMP 36.6; O2SAT 92
[2022-02-01] MEDS: guaiFENesin-codeine UDC 10 mL PO ×2 (14:48→19:55)
--- NOTE | 2022-02-01 17:23 | W.PM.NPUPNS ---
Subjective NPU Subjective: Patient is a 31-year-old white female with a history of PTSD and depression admitted with reports of unusual behavior sleep continuity disruption and suicidal ideation. Patient reported no suicidal thoughts today. She reports that she has been feeling better. She had reported improved sleep. She denied any side effects from her Wellbutrin once a day today. She had continued to endorse PTSD related symptoms and stated that given her medication issues due to the long QT syndrome that she would prefer to continue with intensive outpatient psychotherapy. She reported no cravings for any illicit drugs at this time. Mental Status Exam MSE Comments: She is a casually dressed female who appeared her stated age with normal hygiene and normal gait. There was no evidence of any abnormal involuntary motor movements tics or tremors appreciated. Her speech was normal in rate and rhythm. Her mood was described as good. Her affect is restricted. She denied any homicidal or suicidal ideation. She was alert and oriented to person place and time. There was no clear evidence of delusional thinking. She did not appear to be responding to internal stimuli. Her attention span appeared adequate. Her insight appeared limited at this time. Her judgment was poor. Her impulse control appeared poor. Vitals/I&O/Wt Last Vital Signs Temp 97.9 F 02/01/22 13:30 Pulse 79 02/01/22 13:30 Resp 16 02/01/22 13:30 BP 136/76 02/01/22 13:30 Pulse Ox 92 02/01/22 13:30 O2 Del Method 02/01/22 06:00 Data NPU 01/29/22 17:54 01/29/22 17:54 A&P Assessment and plan (1) Major depressive disorder, recurrent: (2) PTSD (post-traumatic stress disorder): (3) Cannabis use disorder: (4) Generalized anxiety disorder: (5) Long QT interval: Plan Patient is a 31-year-old white female with a history of long QT syndrome currently reporting suicidal ideation with appears to be an exacerbation of PTSD related symptoms as well. The patient appears to be interested in considering alternative medication options as well with no improvement reported with Wellbutrin at this time. 1 Increase Wellbutrin xl 450mg in am., 2.? Encourage individual, group and milieu therapy 3.? Continue q-15 minute check for safety 4.? Recommend sober living treatment at the highest level of care to which the patient is willing to commit. Involuntary Hold Information 96 Hour Hold: 96 Hour Involuntary Admission: Yes Attestations NPU Medical Necessity Statement*: Inpatient hospitalization is medically necessary and the clinically appropriate intervention at this time. We will monitor medications and make changes as indicated. Patient likely length of stay is five to seven days. Coding Level of Care Code Established Pt Acute Accounting Support Specialist for Chg Fwd Patient Type Established History Problem Focused Exam Problem Focused Medical Decision Making Straight Forward Diagnoses Major depressive disorder, recurrent F33.9 PTSD (post-traumatic stress disorder) F43.10 Cannabis use disorder F12.90 Generalized anxiety disorder F41.1 Long QT interval R94.31
[2022-02-01] MEDS: topiramate 100 mg Tablet PO (19:55)
[2022-02-01 20:39] VITALS: BP 136/80; PULSE 78; RESP 16; TEMP 36.8; O2SAT 94
[2022-02-01 23:11] VITALS: PULSE 88; RESP 16; O2SAT 98
[2022-02-01] MEDS: albuterol 2.5 mg/3 mL Neb INHALATION (23:11)
[2022-02-01 23:16] VITALS: PULSE 89
[2022-02-02 06:00] VITALS: BP 124/77; PULSE 77; RESP 17; TEMP 36.4; O2SAT 98
[2022-02-02] MEDS: buPROPion XL (24 HR) 300 mg Tablet 450 MG PO (08:15)
[2022-02-02] MEDS: propranolol 20 mg Tablet 10 MG PO ×2 (08:15→20:17)
[2022-02-02] MEDS: levothyroxine 75 mcg Tablet PO (08:15)
--- NOTE | 2022-02-02 13:06 | W.PM.NPUPNS ---
Subjective NPU Subjective: Patient is a 31-year-old white female with a history of PTSD and depression admitted with reports of unusual behavior sleep continuity disruption and suicidal ideation. She reported no side effects from the Wellbutrin. She reports less PTSD associated symptoms with only occasional nightmares and flashbacks here. Patient reports no auditory hallucinations. She reports that she had adequate sleep last night. She reported less feelings of hopelessness. She reports that she would like to continue to take marijuana for PTSD related symptoms. Patient reported continued problems with low energy. She had also reported chronic issues with migraine headaches that had remained inadequately controlled on propranolol. She did report less frequent migraine headaches though. . Mental Status Exam MSE Comments: She is a casually dressed female who appeared her stated age with normal hygiene and normal gait. There was no evidence of any abnormal involuntary motor movements tics or tremors appreciated. Her speech was normal in rate and rhythm. Her mood was described as okay. Her affect remained restricted in range and mood incongruent. She denied any homicidal or suicidal ideation. She was alert and oriented to person place and time. There was no clear evidence of delusional thinking. She did not appear to be responding to internal stimuli. Her attention span appeared adequate. Her insight appeared limited at this time. Her judgment was poor. Her impulse control appeared poor. Vitals/I&O/Wt Last Vital Signs Temp 97.5 F L 02/02/22 06:00 Pulse 77 02/02/22 06:00 Resp 17 02/02/22 06:00 BP 124/77 02/02/22 06:00 Pulse Ox 98 02/02/22 06:00 O2 Del Method 02/02/22 06:00 Data NPU 01/29/22 17:54 01/29/22 17:54 A&P Assessment and plan (1) Major depressive disorder, recurrent: (2) PTSD (post-traumatic stress disorder): (3) Cannabis use disorder: (4) Generalized anxiety disorder: (5) Long QT interval: Plan Patient is a 31-year-old white female with a history of long QT syndrome currently reporting suicidal ideation with appears to be an exacerbation of PTSD related symptoms as well. The patient appears to be interested in considering alternative medication options as well with no improvement reported with Wellbutrin at this time. 1 Continue Wellbutrin xl 450mg in am., may check EKG. , 2.? Encourage individual, group and milieu therapy 3.? Continue q-15 minute check for safety 4.? Recommend sober living treatment at the highest level of care to which the patient is willing to commit. Involuntary Hold Information 96 Hour Hold: 96 Hour Involuntary Admission: Yes Attestations NPU Medical Necessity Statement*: Inpatient hospitalization is medically necessary and the clinically appropriate intervention at this time. We will monitor medications and make changes as indicated. Patient likely length of stay is five to seven days. Coding Level of Care Code Established Pt Acute Portable Track Line Marker for Chg Fwd Patient Type Established History Problem Focused Exam Problem Focused Medical Decision Making Straight Forward Diagnoses Major depressive disorder, recurrent F33.9 PTSD (post-traumatic stress disorder) F43.10 Cannabis use disorder F12.90 Generalized anxiety disorder F41.1 Long QT interval R94.31
[2022-02-02 14:00] VITALS: BP 140/76; PULSE 92; RESP 18; TEMP 36.6; O2SAT 98
[2022-02-02] MEDS: albuterol 2.5 mg/3 mL Neb INHALATION (17:03)
[2022-02-02 17:04] VITALS: PULSE 86; RESP 16; O2SAT 96
[2022-02-02] MEDS: cetylpyridinium Lozenge 1 EACH MUCOUS MEM (20:17)
[2022-02-02] MEDS: guaiFENesin-codeine UDC 10 mL PO (20:17)
[2022-02-02] MEDS: topiramate 100 mg Tablet PO (20:17)
[2022-02-02 20:45] VITALS: BP 135/83; PULSE 82; RESP 18; TEMP 36.6; O2SAT 96
[2022-02-03] MEDS: guaiFENesin-codeine UDC 10 mL PO ×2 (01:53→20:50)
[2022-02-03 06:00] VITALS: BP 137/97; PULSE 81; RESP 17; TEMP 36.5; O2SAT 98
[2022-02-03] MEDS: buPROPion XL (24 HR) 300 mg Tablet 450 MG PO (08:46)
[2022-02-03] MEDS: propranolol 20 mg Tablet 10 MG PO ×2 (08:47→20:48)
[2022-02-03] MEDS: levothyroxine 75 mcg Tablet PO (08:48)
[2022-02-03 14:00] VITALS: BP 134/93; PULSE 87; RESP 18; TEMP 36.7; O2SAT 96
--- NOTE | 2022-02-03 18:10 | P.NPUPN_ITS ---
Subjective NPU Subjective: Patient is a 31-year-old white female with a history of PTSD and depression admitted with reports of unusual behavior sleep continuity disruption and suicidal ideation. The patient had been compliant on the milieu. She reported no side effects from her Wellbutrin once a day at 450 mg. She denied any PTSD related symptoms. She reports that she was not hearing voices and had no episodes of confusion per staff. Patient reported no feelings of hopelessness and stated that she was hopeful about returning home. She states that she does wish to receive psychotherapy when she leaves the hospital. She did not endorse any nightmares. She continued to report often feeling on edge but reported less flashbacks at this time. She did not endorse any worsening migraine headaches with her current medication regimen. Mental Status Exam MSE Comments: She is a casually dressed female who appeared her stated age with normal hygiene and normal gait. There was no evidence of any abnormal involuntary motor movements tics or tremors appreciated. Her speech was normal in rate and rhythm. Her mood was described as better. Her affect remained restricted in range but was brighter. She denied any homicidal or suicidal ideation. She was alert and oriented to person place and time. There was no clear evidence of delusional thinking. She did not appear to be responding to internal stimuli. Her attention span appeared adequate. Her insight appeared limited at this time. Her judgment appeared to be improved. Her impulse control appeared to be improved as well. Vitals/I&O/Wt Last Vital Signs Temp 98.0 F 02/03/22 14:00 Pulse 87 02/03/22 14:00 Resp 18 02/03/22 14:00 BP 134/93 02/03/22 14:00 Pulse Ox 96 02/03/22 14:00 O2 Del Method 02/03/22 06:00 Data NPU 01/29/22 17:54 01/29/22 17:54 A&P Assessment and plan (1) Major depressive disorder, recurrent: (2) PTSD (post-traumatic stress disorder): (3) Cannabis use disorder: (4) Generalized anxiety disorder: (5) Long QT interval: Plan Patient is a 31-year-old white female with a history of long QT syndrome currently reporting suicidal ideation with appears to be an exacerbation of PTSD related symptoms as well. The patient appears to be interested in considering alternative medication options as well with no improvement reported with Wellbutrin at this time. 1 Continue Wellbutrin xl 450mg in am., may check EKG. , 2.? Encourage individual, group and milieu therapy 3.? Continue q-15 minute check for safety 4.? Recommend sober living treatment at the highest level of care to which the patient is willing to commit. Involuntary Hold Information 96 Hour Hold: 96 Hour Involuntary Admission: Yes Attestations NPU Medical Necessity Statement*: Inpatient hospitalization is medically necessary and the clinically appropriate intervention at this time. We will monitor medications and make changes as indicated. Patient likely length of stay is 1-2 days. Coding Level of Care Code Established Pt Acute Mounting Machine Operator for Chg Fwd Patient Type Established History Problem Focused Exam Problem Focused Medical Decision Making Straight Forward Diagnoses Major depressive disorder, recurrent F33.9 PTSD (post-traumatic stress disorder) F43.10 Cannabis use disorder F12.90 Generalized anxiety disorder F41.1 Long QT interval R94.31
[2022-02-03] MEDS: albuterol 2.5 mg/3 mL Neb INHALATION (19:48)
[2022-02-03 19:49] VITALS: PULSE 106; RESP 18; O2SAT 98
[2022-02-03 20:23] VITALS: BP 132/70; PULSE 106; RESP 18; TEMP 36.7; O2SAT 97
[2022-02-03] MEDS: topiramate 100 mg Tablet PO (20:48)
[2022-02-04] MEDS: guaiFENesin-codeine UDC 10 mL PO ×2 (00:51→20:06)
[2022-02-04] MEDS: cetylpyridinium Lozenge 1 EACH MUCOUS MEM ×3 (04:36→18:52)
[2022-02-04 06:00] VITALS: BP 109/86; PULSE 79; RESP 19; TEMP 36.7; O2SAT 98
[2022-02-04] MEDS: buPROPion XL (24 HR) 300 mg Tablet 450 MG PO (08:42)
[2022-02-04] MEDS: propranolol 20 mg Tablet 10 MG PO ×2 (08:42→20:06)
[2022-02-04] MEDS: levothyroxine 75 mcg Tablet PO (08:43)
[2022-02-04 08:47] VITALS: PULSE 96; RESP 18; O2SAT 98
--- NOTE | 2022-02-04 09:58 | DCPLANNER ---
IMM completed on 02/04/22 @ 3608. Pt stated she understood her rights and was given a copy of rights.
--- NOTE | 2022-02-04 13:05 | ECG_ITS ---
[facility] Test Date: 2022-02-04 Pat Name: Dory Howard Department: Room: 152 Gender: Female Rn New Grad: : 1990 Requested By: Jasmeet Zavala Order Number: [id number] Jason MD: Nichole Lopez M.D. Measurements Intervals [place] Rate: 86 P: 49 VT: 121 QRS: 32 QRSD: 92 T: 54 QT: 382 QTc: 459 Interpretive Statements SINUS RHYTHM MINIMAL ST DEPRESSION [0.025+ mV ST DEPRESSION] Compared to ECG 01/29/2022 18:06:38 Sinus arrhythmia no longer present ST (T wave) deviation still present Electronically Signed On 02-04-2022 14:52:21 PRODUCTION GENERALIST by Nichole Lopez M.D. [id number]
[2022-02-04 14:00] VITALS: BP 162/84; PULSE 98; RESP 18; TEMP 36.6; O2SAT 98
--- NOTE | 2022-02-04 14:58 | P.NPUPN_ITS ---
Subjective NPU Subjective: Patient is a 31-year-old white female with a history of PTSD and depression admitted with reports of unusual behavior sleep continuity disruption and suicidal ideation. The patient had apparently slept very few hours last night. She appeared relatively unhinged to this morning as she was profusely crying stating that she needed to leave here today because her mother and father had just this weekend of 2 different causes. Her she reported that her father had of an overdose and her mother had in an accident. Staff was able to contact the patient's sister who confirmed that she had just spoken with the mother a few minutes ago and that her father was not either. She had stated that she needed to go home and stated that her family member had been waiting in the parking lot for her to return home. She was wandering the hallway stating that she needed to go home but was not unable to elaborate otherwise as she continued to fixate on the belief that her parents were . Mental Status Exam MSE Comments: She she is a disheveled white female who appeared older than her stated age with poor hygiene and normal gait. There was no evidence of any abnormal involuntary motor movements tics or tremors appreciated. Her speech was normal in rate and rhythm with increased volume. Her mood was described as fine. Her affect was labile, intense and bizarre. She denied any homicidal or suicidal ideation. She was alert and oriented to person place and time. T here was prominent delusions evident today. She did not appear to be responding to internal stimuli. Her attention span appeared poor. Her insight was limited. Her judgment appeared to be impaired. Her impulse control appeared impaired. Vitals/I&O/Wt Last Vital Signs Temp 98.1 F 02/04/22 06:00 Pulse 96 02/04/22 08:47 Resp 18 02/04/22 08:47 BP 109/86 02/04/22 06:00 Pulse Ox 98 02/04/22 08:47 O2 Del Method 02/04/22 08:47 Data NPU 01/29/22 17:54 01/29/22 17:54 A&P Assessment and plan (1) Major depressive disorder, recurrent: (2) PTSD (post-traumatic stress disorder): (3) Cannabis use disorder: (4) Generalized anxiety disorder: (5) Long QT interval: Plan Patient is a 31-year-old white female with a history of long QT syndrome currently reporting suicidal ideation with appears to be an exacerbation of PTSD related symptoms as well. 1 Continue Wellbutrin xl 450mg in am., may check EKG. Cardiac consult regarding medication options given long qt syndrome. 2.? Encourage individual, group and milieu therapy 3.? Continue q-15 minute check for safety 4.? Recommend sober living treatment at the highest level of care to which the patient is willing to commit. Involuntary Hold Information 96 Hour Hold: 96 Hour Involuntary Admission: Yes Attestations NPU Medical Necessity Statement*: Inpatient hospitalization is medically necessary and the clinically appropriate intervention at this time. We will monitor medications and make changes as indicated. Patient likely length of stay is 5-7 days. Coding Level of Care Code Established Pt Acute Engagement Engineer for [facility] F[facility] Patient Type Established History Problem Focused Exam Problem Focused Medical Decision Making Straight Forward Diagnoses Major depressive disorder, recurrent F33.9 PTSD (post-traumatic stress disorder) F43.10 Cannabis use disorder F12.90 Generalized anxiety disorder F41.1 Long QT interval R94.31
[2022-02-04] MEDS: topiramate 100 mg Tablet PO (20:06)
[2022-02-04] MEDS: albuterol 2.5 mg/3 mL Neb INHALATION (20:35)
[2022-02-04 20:36] VITALS: PULSE 127; RESP 18; O2SAT 97
[2022-02-04 20:40] VITALS: PULSE 119
[2022-02-04 21:11] VITALS: BP 138/88; PULSE 104; RESP 18; TEMP 36.9; O2SAT 97
[2022-02-05] MEDS: propranolol 20 mg Tablet 10 MG PO ×2 (08:33→19:59)
[2022-02-05] MEDS: buPROPion XL (24 HR) 300 mg Tablet 450 MG PO (08:33)
[2022-02-05] MEDS: levothyroxine 75 mcg Tablet PO (08:34)
--- NOTE | 2022-02-05 13:16 | P.NPUPN_ITS ---
Subjective NPU Subjective: Patient is a 31-year-old white female with a history of PTSD and depression admitted with reports of unusual behavior sleep continuity disruption and suicidal ideation. The patient had isolated herself on the milieu. She had been spending time in her bedroom staring out the window for a significant period of time appearing to be talking to herself and responding to internal stimuli. She had been minimally compliant in groups. She had apparently slept 6 hours last night. There were no reports of side effects from her medication. She reported again that she was waiting for someone to pick her up although there were no reports of anyone here to pick her up earlier today. Family mem bers had expressed concerns about the patient's behavior over the last month stating that the patient had appeared confused. Mental Status Exam MSE Comments: she is a disheveled white female who appeared older than her stated age with poor hygiene and normal gait. There was no evidence of any abnormal involuntary motor movements tics or tremors appreciated. Her speech was normal in rate and rhythm with increased volume. Her mood was described as okay Her affect was odd and subdued. She denied any homicidal or suicidal ideation. She was alert and oriented to person place and time. There was continued evidence of delusional thinking. She did appear to be responding to internal stimuli as well.. Her attention span appeared poor. Her insight was limited. Her judgment appeared to be impaired. Her impulse control appeared impaired. Vitals/I&O/Wt Last Vital Signs Temp 98.5 F 02/04/22 21:11 Pulse 104 H 02/04/22 21:11 Resp 18 02/04/22 21:11 BP 138/88 02/04/22 21:11 Pulse Ox 97 02/04/22 21:11 O2 Del Method 02/04/22 20:36 Data NPU 01/29/22 17:54 01/29/22 17:54 A&P Assessment and plan (1) Major depressive disorder, recurrent: (2) PTSD (post-traumatic stress disorder): (3) Cannabis use disorder: (4) Generalized anxiety disorder: (5) Long QT interval: Plan Patient is a 31-year-old white female with a history of long QT syndrome currently reporting suicidal ideation with appears to be an exacerbation of PTSD related symptoms as well. 1 Continue Wellbutrin xl 450mg in am., may check EKG. Cardiac consult regarding medication options given long qt syndrome. 2.? Encourage individual, group and milieu therapy 3.? Continue q-15 minute check for safety 4.? Recommend sober living treatment at the highest level of care to which the patient is willing to commit. 5. May require involuntary hospitalization as she is refusing medications. Involuntary Hold Information 96 Hour Hold: 96 Hour Involuntary Admission: Yes Attestations NPU Medical Necessity Statement*: Inpatient hospitalization is medically necessary and the clinically appropriate intervention at this time. We will monitor medications and make changes as indicated. Patient likely length of stay is 5-7 days. Coding Level of Care Code Established Pt Acute Financial Quantitative Analyst for [employer] F[facility] Patient Type Established History Problem Focused Exam Problem Focused Medical Decision Making Straight Forward Diagnoses Major depressive disorder, recurrent F33.9 PTSD (post-traumatic stress disorder) F43.10 Cannabis use disorder F12.90 Generalized anxiety disorder F41.1 Long QT interval R94.31
[2022-02-05] MEDS: cetylpyridinium Lozenge 1 EACH MUCOUS MEM ×2 (13:58→15:50)
[2022-02-05 14:00] VITALS: BP 127/76; PULSE 100; RESP 17; TEMP 36.9; O2SAT 96
[2022-02-05] MEDS: guaiFENesin-codeine UDC 10 mL PO (15:50)
[2022-02-05 16:52] VITALS: PULSE 109; RESP 16; O2SAT 98
[2022-02-05] MEDS: albuterol 2.5 mg/3 mL Neb INHALATION (16:52)
[2022-02-05 19:58] VITALS: BP 133/87; PULSE 90; RESP 18; TEMP 37.2; O2SAT 98
[2022-02-05] MEDS: topiramate 100 mg Tablet PO (19:59)
[2022-02-06] MEDS: levothyroxine 75 mcg Tablet PO (09:11)
[2022-02-06] MEDS: buPROPion XL (24 HR) 300 mg Tablet 450 MG PO (09:11)
[2022-02-06] MEDS: propranolol 20 mg Tablet 10 MG PO ×2 (09:11→19:43)
[2022-02-06 14:00] VITALS: BP 133/97; PULSE 86; RESP 17; TEMP 36.7; O2SAT 93
[2022-02-06] MEDS: ARIPiprazole 10 mg Tablet 5 MG PO (14:01)
--- NOTE | 2022-02-06 17:10 | W.PM.NPUPNS ---
Subjective NPU Subjective: Patient is a 31-year-old white female with a history of PTSD and depression admitted with reports of unusual behavior sleep continuity disruption and suicidal ideation. 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 Patient continued to have periods of contact fusion and reported that she struggled with understanding the difference between reality and fantasy. She had reported that she had been anxious at times and then appeared more confused about her circumstances and her place. She did not endorse any plan for returning home. She did state that she may return to live with her sister once stabilized. Mental Status Exam MSE Comments: she is a disheveled white female who appeared older than her stated age with poor hygiene and normal gait. There was no evidence of any abnormal involuntary motor movements tics or tremors appreciated. Her speech was normal in rate and rhythm with normal volume. Her mood was described as okay. Her affect was odd and subdued. She denied any homicidal or suicidal ideation. She was alert and oriented to person place and time. There was no overt delusions noted. She did appear to be responding to internal stimuli as well. Her attention span appeared poor. Her insight was limited. Her judgment appeared to be impaired. Her impulse control appeared impaired. Vitals/I&O/Wt Last Vital Signs Temp 98.1 F 02/06/22 14:00 Pulse 86 02/06/22 14:00 Resp 17 02/06/22 14:00 BP 133/97 02/06/22 14:00 Pulse Ox 93 02/06/22 14:00 O2 Del Method 02/05/22 16:52 Data NPU 01/29/22 17:54 01/29/22 17:54 A&P Assessment and plan (1) Major depressive disorder, recurrent: (2) PTSD (post-traumatic stress disorder): (3) Cannabis use disorder: (4) Generalized anxiety disorder: (5) Long QT interval: Plan Patient is a 31-year-old white female with a history of long QT syndrome currently reporting suicidal ideation with appears to be an exacerbation of PTSD related symptoms as well. 1 Continue Wellbutrin xl 450mg in am., may check EKG. Cardiac consult regarding medication options given long qt syndrome. 2.? Encourage individual, group and milieu therapy 3.? Continue q-15 minute check for safety 4.? Recommend sober living treatment at the highest level of care to which the patient is willing to commit. 5. agreeable to start of abilify 5mg daily, repeat ekg daily, titrate up to 10mg and check ekg. Involuntary Hold Information 96 Hour Hold: 96 Hour Involuntary Admission: Yes Attestations NPU Medical Necessity Statement*: Inpatient hospitalization is medically necessary and the clinically appropriate intervention at this time. We will monitor medications and make changes as indicated. Patient likely length of stay is 5-7 days. Coding Level of Care Code Established Pt Acute Glove Parts Inspector for [facility] Fwd Patient Type Established History Problem Focused Exam Problem Focused Medical Decision Making Straight Forward Diagnoses Major depressive disorder, recurrent F33.9 PTSD (post-traumatic stress disorder) F43.10 Cannabis use disorder F12.90 Generalized anxiety disorder F41.1 Long QT interval R94.31
[2022-02-06] MEDS: topiramate 100 mg Tablet PO (19:43)
[2022-02-06] MEDS: guaiFENesin-codeine UDC 10 mL PO (20:07)
[2022-02-06 20:29] VITALS: BP 131/83; PULSE 88; RESP 17; TEMP 36.6; O2SAT 95
[2022-02-07 06:00] VITALS: RESP 16
[2022-02-07] MEDS: buPROPion XL (24 HR) 300 mg Tablet 450 MG PO (09:12)
[2022-02-07] MEDS: propranolol 20 mg Tablet 10 MG PO ×2 (09:13→21:06)
[2022-02-07] MEDS: ARIPiprazole 10 mg Tablet 5 MG PO (09:13)
[2022-02-07] MEDS: levothyroxine 75 mcg Tablet PO (09:14)
--- NOTE | 2022-02-07 12:58 | ECG_ITS ---
[facility] Test Date: 2022-02-07 Pat Name: Dory Howard Department: Room: 152 Gender: Female Nursing Home Director: : 1990 Requested By: Sim Juarez Order Number: [id number] Gomez MD: Theresa Marin M.D. Measurements Intervals [place] Rate: 91 P: 68 PA: 131 QRS: 31 QRSD: 89 T: 55 QT: 386 QTc: 475 Interpretive Statements SINUS RHYTHM WITH OCCASIONAL VENTRICULAR PREMATURE COMPLEXES POSSIBLE LEFT ATRIAL ENLARGEMENT [-0.1mV P-WAVE IN V1/V2] Compared to ECG 02/04/2022 13:05:32 Ventricular premature complex(es) now present ST (T wave) deviation no longer present Electronically Signed On 02-07-2022 19:09:20 VEHICLE WINDOW TINTER by Theresa Marin M.D. [id number]
[2022-02-07 12:59] VITALS: PULSE 91
[2022-02-07 14:00] VITALS: BP 122/72; PULSE 98; RESP 16; TEMP 36.9; O2SAT 98
--- NOTE | 2022-02-07 14:53 | P.NPUPN_ITS ---
Subjective NPU Subjective: Patient presented today reporting that she is doing okay with the medications that she had at the [facility] have indicated. She reports that she does plan to return to [facility] and do her medication management at [facility] but her therapy at [facility]. She reports that he feels he is slowly improving and that there is no problems in the last 24 hours. We agreed we would work with the treatment team to make sure her sister identifies that she has demonstrated improvement from what led to her hospitalization. Mental Status Exam MSE Comments: This is an overweight versus obese white female in hospital scrubs with limited grooming and eye contact. No abnormalities or mild psychomotor retardation. Cooperative exam in no acute distress. Speech was decreased rate and volume. Mood described as a little better, affect odd and subdued. Thought process linear. Thought content: Patient denied suicidal or homicidal ideation, there are no delusions reported but likely paranoia with some guardedness noted, there are no auditory visual hallucinations reported. Attention and concentration appear intact and memory appear reliable but none were formally tested. She is alert and oriented x3. Insight and judgment limited impulse control appears fair. Vitals/I&O/Wt Last Vital Signs Temp 98.5 F 02/07/22 14:00 Pulse 98 02/07/22 14:00 Resp 16 02/07/22 14:00 BP 122/72 02/07/22 14:00 Pulse Ox 98 02/07/22 14:00 O2 Del Method 02/07/22 14:00 Data NPU 01/29/22 17:54 01/29/22 17:54 A&P Assessment and plan (1) Major depressive disorder, recurrent: (2) PTSD (post-traumatic stress disorder): (3) Cannabis use disorder: (4) Generalized anxiety disorder: (5) Long QT interval: Plan Patient is a 31-year-old white female with a history of long QT syndrome currently reporting suicidal ideation with appears to be an exacerbation of PTSD related symptoms as well. 1 Continue Wellbutrin xl 450mg in am., may check EKG. Cardiac consult regarding medication options given long qt syndrome. 2.? Encourage individual, group and milieu therapy 3.? Continue q-15 minute check for safety 4.? Recommend sober living treatment at the highest level of care to which the patient is willing to commit. 5. agreeable to start of abilify 5mg daily, repeat ekg daily, will consider titration up to 10mg and check ekg. Involuntary Hold Information 96 Hour Hold: 96 Hour Involuntary Admission: Yes Attestations NPU Medical Necessity Statement*: Inpatient hospitalization is medically necessary and the clinically appropriate intervention at this time. We will monitor medications and make changes as indicated. Likely length of stay is 3-6 days. Coding Level of Care Code Acute Physical Testing Supervisor for g Fwd Diagnoses Major depressive disorder, recurrent F33.9 PTSD (post-traumatic stress disorder) F43.10 Cannabis use disorder F12.90 Generalized anxiety disorder F41.1 Long QT interval R94.31
[2022-02-07] MEDS: docusate sodium 100 mg Capsule 200 MG PO (17:47)
[2022-02-07] MEDS: topiramate 100 mg Tablet PO (21:07)
[2022-02-07 22:00] VITALS: RESP 17
[2022-02-07 23:09] VITALS: PULSE 99; RESP 16; O2SAT 99
[2022-02-07] MEDS: albuterol 2.5 mg/3 mL Neb INHALATION (23:09)
[2022-02-08] MEDS: guaiFENesin-codeine UDC 10 mL PO (03:54)
[2022-02-08 06:00] VITALS: RESP 17
[2022-02-08] MEDS: buPROPion XL (24 HR) 300 mg Tablet 450 MG PO (08:52)
[2022-02-08] MEDS: ARIPiprazole 10 mg Tablet 5 MG PO ×2 (08:52→16:13)
[2022-02-08] MEDS: levothyroxine 75 mcg Tablet PO (08:53)
[2022-02-08] MEDS: propranolol 20 mg Tablet 10 MG PO ×2 (08:54→20:43)
[2022-02-08] MEDS: magnesium hydroxide 30 mL UDC PO (09:33)
--- NOTE | 2022-02-08 13:06 | ECG_ITS ---
[facility] Test Date: 2022-02-08 Pat Name: Dory Howard Department: Room: 152 Gender: Female Billet Assembler: : 1990 Requested By: Jasmeet Zavala Order Number: [id number] Jason MD: Theresa Marin M.D. Measurements Intervals [place] Rate: 94 P: 56 FL: 124 QRS: 21 QRSD: 87 T: 50 QT: 378 QTc: 474 Interpretive Statements SINUS RHYTHM NONSPECIFIC ST & T-WAVE ABNORMALITY Compared to ECG 02/07/2022 11:46:03 T-wave abnormality now present Ventricular premature complex(es) no longer present Electronically Signed On 02-09-2022 7:56:16 HONEY LIQUEFIER by Theresa Marin M.D. [email or web address].[employer]/store/[id number]
--- NOTE | 2022-02-08 13:52 | W.PM.NPUPNS ---
Subjective NPU Subjective: Patient presents today reporting that she is hoping that we can stick to conversation about discharge this weekend. She is really wanting to not still be here on Friday. We discussed with benefits alternatives of increasing her Abilify to 10 mg p.o. daily today and she understood agreed to proceed as is documented in this note. We discussed a plan to give her the increased dose today and then tomorrow and get an EKG prior to likely discharge Friday or Friday. Mental Status Exam MSE Comments: This is an overweight versus obese white female in hospital scrubs with limited grooming and eye contact. No abnormalities or mild psychomotor retardation. Cooperative exam in no acute distress. Speech was decreased rate and volume. Mood described as a little better, affect odd and subdued. Thought process linear. Thought content: Patient denied suicidal or homicidal ideation, there are no delusions reported but likely paranoia with some guardedness noted, there are no auditory visual hallucinations reported. Attention and concentration appear intact and memory appear reliable but none were formally tested. She is alert and oriented x3. Insight and judgment limited impulse control appears fair. Vitals/I&O/Wt Last Vital Signs Temp 98.5 F 02/07/22 14:00 Pulse 99 02/07/22 23:09 Resp 17 02/08/22 06:00 BP 122/72 02/07/22 14:00 Pulse Ox 99 02/07/22 23:09 O2 Del Method 02/07/22 23:09 Data NPU 01/29/22 17:54 01/29/22 17:54 A&P Assessment and plan (1) Major depressive disorder, recurrent: (2) PTSD (post-traumatic stress disorder): (3) Cannabis use disorder: (4) Generalized anxiety disorder: (5) Long QT interval: Plan Patient is a 31-year-old white female with a history of long QT syndrome currently reporting suicidal ideation with appears to be an exacerbation of PTSD related symptoms as well. 1 Continue Wellbutrin xl 450mg in am. Cardiac consult regarding medication options given long qt syndrome. 2.? Encourage individual, group and milieu therapy 3.? Continue q-15 minute check for safety 4.? Recommend sober living treatment at the highest level of care to which the patient is willing to commit. 5. Started abilify 5mg daily, repeat ekg daily and increase to 10mg and check ekg. Involuntary Hold Information 96 Hour Hold: 96 Hour Involuntary Admission: Yes Attestations NPU Medical Necessity Statement*: Inpatient hospitalization is medically necessary and the clinically appropriate intervention at this time. We will monitor medications and make changes as indicated. Likely length of stay is 1-3 days. Coding Level of Care Code Acute Deputy Insurance Commissioner for g Fwd Diagnoses Major depressive disorder, recurrent F33.9 PTSD (post-traumatic stress disorder) F43.10 Cannabis use disorder F12.90 Generalized anxiety disorder F41.1 Long QT interval R94.31
[2022-02-08 14:00] VITALS: BP 137/89; PULSE 103; RESP 18; TEMP 36.6; O2SAT 97
[2022-02-08 19:38] VITALS: BP 137/84; PULSE 108; RESP 17; TEMP 36.7; O2SAT 96
[2022-02-08] MEDS: topiramate 100 mg Tablet PO (20:43)
[2022-02-09 06:00] VITALS: BP 126/86; PULSE 89; RESP 16; TEMP 36.4; O2SAT 99
[2022-02-09] MEDS: buPROPion XL (24 HR) 300 mg Tablet 450 MG PO (08:59)
[2022-02-09] MEDS: levothyroxine 75 mcg Tablet PO (08:59)
[2022-02-09] MEDS: ARIPiprazole 10 mg Tablet PO (08:59)
--- NOTE | 2022-02-09 09:00 | ECG_ITS ---
[facility] Test Date: 2022-02-09 Pat Name: Dory Howard Department: Room: 152 Gender: Female Java Android Developer: : 1990 Requested By: Jasmeet Zavala Order Number: [id number] Jason MD: Howie Toscano M.D. Measurements Intervals [place] Rate: 103 P: 77 MO: 120 QRS: 51 QRSD: 89 T: 72 QT: 356 QTc: 468 Interpretive Statements SINUS TACHYCARDIA NONSPECIFIC ST & T-WAVE ABNORMALITY Compared to ECG 02/08/2022 13:06:09 Sinus rhythm no longer present T-wave abnormality still present Electronically Signed On 02-10-2022 19:59:10 DRIVERS LICENSE EXAMINER by Howie Toscano M.D. [email or web address]/store/[id number]
[2022-02-09] MEDS: propranolol 20 mg Tablet 10 MG PO ×2 (09:45→21:52)
[2022-02-09 14:00] VITALS: BP 112/78; PULSE 77; RESP 16; TEMP 36.6; O2SAT 98
[2022-02-09] MEDS: magnesium hydroxide 30 mL UDC PO (17:40)
--- NOTE | 2022-02-09 19:13 | W.PM.NPUPNS ---
Subjective NPU Subjective: Patient presented today really wanting to go home. We discussed our previous discussion about the possibility of discharge this weekend but agreed that our goal was that she not be alone and that be a safe plan given that we just changed her medication. She was able to collaborate with the treatment team and we discussed an organized discharge in the morning after her EKG with more clarity to her discharge location and how soon her sister or father would be collaborating with her on her follow-ups as soon as Friday. Mental Status Exam MSE Comments: This is an overweight versus obese white female in hospital scrubs with limited grooming and eye contact. No abnormalities or mild psychomotor retardation. Cooperative exam in no acute distress. Speech was decreased rate and volume. Mood described as better, affect odd but less subdued. Thought process linear. Thought content: Patient denied suicidal or homicidal ideation, there are no delusions reported but likely paranoia with some guardedness noted, there are no auditory visual hallucinations reported. Attention and concentration appear intact and memory appear reliable but none were formally tested. She is alert and oriented x3. Insight and judgment limited, impulse control appears fair. Vitals/I&O/Wt Last Vital Signs Temp 98.1 F 02/09/22 19:53 Pulse 109 H 02/09/22 19:53 Resp 16 02/09/22 19:53 BP 135/86 02/09/22 19:53 Pulse Ox 96 02/09/22 19:53 O2 Del Method 02/09/22 19:53 Weight last 48 hrs Weight 83.28 kg Data NPU 01/29/22 17:54 01/29/22 17:54 A&P Assessment and plan (1) Major depressive disorder, recurrent: (2) PTSD (post-traumatic stress disorder): (3) Cannabis use disorder: (4) Generalized anxiety disorder: (5) Long QT interval: Plan Patient is a 31-year-old white female with a history of long QT syndrome currently reporting suicidal ideation with appears to be an exacerbation of PTSD related symptoms as well. 1 Continue Wellbutrin xl 450mg in am. Cardiac consult regarding medication options given long qt syndrome. 2.? Encourage individual, group and milieu therapy 3.? Continue q-15 minute check for safety 4.? Recommend sober living treatment at the highest level of care to which the patient is willing to commit. 5. Started abilify 5mg daily, repeat ekg daily and increased to 10mg and check ekg. 6. Likely discharge in the morning. Involuntary Hold Information 96 Hour Hold: 96 Hour Involuntary Admission: Yes Attestations NPU Medical Necessity Statement*: Inpatient hospitalization is medically necessary and the clinically appropriate intervention at this time. We will monitor medications and make changes as indicated. Likely length of stay is 1-2 days. Coding Level of Care Code Acute Automotive Engineering Technician for [facility] Fwd Diagnoses Major depressive disorder, recurrent F33.9 PTSD (post-traumatic stress disorder) F43.10 Cannabis use disorder F12.90 Generalized anxiety disorder F41.1 Long QT interval R94.31
[2022-02-09 19:53] VITALS: BP 135/86; PULSE 109; RESP 16; TEMP 36.7; O2SAT 96
[2022-02-09] MEDS: guaiFENesin-codeine UDC 10 mL PO (21:52)
[2022-02-09] MEDS: topiramate 100 mg Tablet PO (21:52)
--- NOTE | 2022-02-09 22:25 | PC.NURSE ---
PRN Robitussin given for cough with good results.
[2022-02-10 06:00] VITALS: BP 124/82; PULSE 94; RESP 16; TEMP 36.6; O2SAT 94
[2022-02-10] MEDS: levothyroxine 75 mcg Tablet PO (08:32)
[2022-02-10] MEDS: ARIPiprazole 10 mg Tablet PO (08:32)
[2022-02-10] MEDS: propranolol 20 mg Tablet 10 MG PO (08:32)
[2022-02-10] MEDS: buPROPion XL (24 HR) 300 mg Tablet 450 MG PO (08:32)
[2022-02-10] MEDS: magnesium hydroxide 30 mL UDC PO (09:43)
[2022-02-10 10:00] VITALS: PULSE 94
--- NOTE | 2022-02-10 10:00 | ECG_ITS ---
[facility] Test Date: 2022-02-10 Pat Name: Dory Howard Department: Room: 152 Gender: Female Utility Worker Driver: : 1990 Requested By: Sim Juarez Order Number: [id number] Gomez MD: Howie Toscano M.D. Measurements Intervals [place] Rate: 92 P: 62 ME: 129 QRS: 59 QRSD: 87 T: 67 QT: 375 QTc: 466 Interpretive Statements SINUS RHYTHM POSSIBLE LEFT ATRIAL ENLARGEMENT [-0.1mV P-WAVE IN V1/V2] MINIMAL ST DEPRESSION [0.025+ mV ST DEPRESSION] Compared to ECG 02/09/2022 08:51:25 ST (T wave) deviation now present Sinus tachycardia no longer present T-wave abnormality no longer present Electronically Signed On 02-10-2022 19:56:54 BOAT ENGINE MECHANIC by Howie Toscano M.D. [email or web address] It [id number]
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
[2022-02-10 12:37] VITALS: PULSE 94
[2022-02-10 14:00] VITALS: BP 124/82; PULSE 94; RESP 16; TEMP 36.6; O2SAT 94
== END 2022-02-10 18:38 | disposition home or self-care (01) | DRG 885 ==
LOC: ER 21:31 → NP 01-30 08:43
PROVIDERS: Admitting Provider Psychiatry & Neurology Psychiatry; Emergency Provider Emergency Medicine; PCP Nurse Practitioner Family; Visit Provider Psychiatry & Neurology Psychiatry
DX: F33.9 Major depressive disorder, recurrent, unspecified (principal); F43.10 Post-traumatic stress disorder, unspecified; F12.90 Cannabis use, unspecified, uncomplicated; F41.1 Generalized anxiety disorder; Z81.8 Family history of other mental and behavioral disorders; F16.21 Hallucinogen dependence, in remission; F15.91 Other stimulant use, unspecified, in remission; I10 Essential (primary) hypertension; F17.210 Nicotine dependence, cigarettes, uncomplicated; I45.81 Long QT syndrome
CPT/HCPCS: 36415; 80053; 80306; 80307; 81001; 81025; 85025; 87426; 87804; 93005; 94640; 97150; 97165; 97167; 99285; J7613

== ENCOUNTER 2022-06-26 00:39 | Inpatient (IN) | payer MEDICARE, MEDICAID, SELFPAY ==
[2022-06-26 00:47] VITALS: BP 119/77; PULSE 90; RESP 18; O2SAT 99; BMI 29.0
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
[2022-06-26] MEDS: LORazepam 1 mg Tablet PO (01:45)
[2022-06-26 02:19] LABS: HCG Qualitative Urine. Negative (Negative)
[2022-06-26 02:22] LABS: Add Urine Microscopic? NO; Charge for UA Resulting for Rev
[2022-06-26 02:27] LABS: Basophils % 0.2 %; Hematocrit 40.7 % (37.0-47.0); Hemoglobin 13.4 g/dL (11.5-15.3); Lymphocytes # 1.7 10^3/uL (0.8-4.8); Lymphocytes % 20.1 %; Mean Corpuscular HGB Conc 32.9 g/dL (30.0-36.0); Mean Corpuscular Hemoglobin 29.8 pg (28.0-34.0); Mean Corpuscular Volume 90.4 fl (81-99); Mean Platelet Volume 9.2 fL (7.4-10.4); Monocytes # 0.5 10^3/uL (0.2-0.9); Monocytes % 5.9 %; Neutrophils # 6.01 10^3/uL (1.8-7.7); Neutrophils % 73.4 %; Nucleated Red Blood Cells % 0 %; Platelet Count 262 10^3/cmm (130-400); Red Cell Distribution Width 12.5 % (12.1-15.1); White Blood Count 8.2 10^3/uL (4.0-10.0)
[2022-06-26 02:33] LABS: Amphetamines Screen Urine Negative (Negative); Barbiturates Screen Urine Negative (Negative); Benzodiazepines Screen Urine Negative (Negative); Cocaine Screen Urine Negative (Negative); Opiate Screen Urine Negative (Negative); PCP Screen Urine Negative (Negative); THC Screen Urine Positive (Negative)
[2022-06-26 02:42] LABS: Bilirubin Urine Neg (Negative); Blood Urine Neg (Negative); Glucose Urine UA Norm (Normal); Ketones Urine Negative (Negative); Leukocyte Esterase Urine Negative (Negative); Nitrate Urine Negative (Negative); Protein Urine Neg (Negative); Urine Appearance Clear (CLEAR); Urine Color Yellow (Yellow); Urobilinogen Urine Norm (Negative); pH Urine 7 (5-7)
[2022-06-26 02:42] LABS: Alanine Aminotransferase 11 U/L (0-33); Albumin Level 4.1 g/dL (3.5-5.2); Alkaline Phosphatase 94 U/L (35-105); Anion Gap 13.9 (5-19); Aspartate Amino Transferase 14 U/L (0-32); Blood Urea Nitrogen 6 mg/dL (6-20); Calcium 8.7 mg/dL (8.5-10.5); Carbon Dioxide 21 mmol/L (22-29); Chloride 108 mmol/L (98-107); Globulin 2.4 g/dL (1.3-4.6); Glomerular Filtration Rate 115.1 mL/min (90-130); Glucose 104 mg/dL (65-115); Osmolality Calculated 288 mOsm/kg (285-295); Sodium 140 mmol/L (136-145); Thyroid Stimulating Hormone 1.97 uIU/mL (0.27-4.20); Total Bilirubin 0.3 mg/dL (0.15-1.2); Total Protein 6.5 g/dL (6.6-8.7)
[2022-06-26 02:44] LABS: Acetaminophen < 5.0 ug/mL (10-30); Alcohol Level < 10 mg/dL (0-10); Salicylate < 0.3 mg/dL (3-10)
[2022-06-26 02:47] LABS: Potassium 2.9 mmol/L (3.5-5.1)
[2022-06-26] MEDS: potassium chloride ER 20 mEq Tablet 40 MEQ PO (03:42)
[2022-06-26 04:21] VITALS: BP 132/80; PULSE 85; RESP 15; TEMP 36.6; O2SAT 98
[2022-06-26] MEDS: hyDROXYzine 25 mg Capsule 50 MG PO (04:57)
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
[2022-06-26 06:00] VITALS: RESP 18
--- NOTE | 2022-06-26 09:22 | PC.OT ---
OT EVALUATION ATTEMPTED. PATIENT SLEEPING SOUNDLY AND UNABLE TO AWAKEN. WILL ATTEMPT AGAIN AT A LATER TIME
[2022-06-26] MEDS: buPROPion XL (24 HR) 300 mg Tablet PO (11:02)
[2022-06-26] MEDS: buPROPion XL (24 HR) 150 mg Tablet PO (11:03)
[2022-06-26] MEDS: propranolol 20 mg Tablet 10 MG PO (11:03)
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
[2022-06-26 14:00] VITALS: BP 110/76; PULSE 78; RESP 18; TEMP 36.7; O2SAT 99
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
[2022-06-26] MEDS: OLANZapine 5 mg ODT PO (17:43)
--- NOTE | 2022-06-26 17:45 | PC.NURSE ---
pt came to the nurses station requesting something for anxiety. Pt was given options and decided to try zyprexa 5 mg. this was administered and pt was educated to let this tablet dissolve under tongue pt verbalized understanding.
[2022-06-26] MEDS: topiramate 100 mg Tablet PO (20:27)
[2022-06-26 22:00] VITALS: BP 96/62; PULSE 92; RESP 18; TEMP 36.9; O2SAT 96
[2022-06-27 05:53] VITALS: RESP 15
[2022-06-27] MEDS: levothyroxine 150 mcg Tablet 75 MCG PO (06:17)
[2022-06-27] MEDS: buPROPion XL (24 HR) 300 mg Tablet PO (08:57)
[2022-06-27] MEDS: propranolol 20 mg Tablet 10 MG PO ×2 (08:57→20:18)
[2022-06-27] MEDS: buPROPion XL (24 HR) 150 mg Tablet PO (08:57)
[2022-06-27] MEDS: OLANZapine 5 mg ODT PO ×2 (08:59→20:18)
[2022-06-27 10:11] LABS: Alanine Aminotransferase 12 U/L (0-33); Alkaline Phosphatase 93 U/L (35-105); Aspartate Amino Transferase 12 U/L (0-32); Blood Urea Nitrogen 9 mg/dL (6-20); Calcium 8.7 mg/dL (8.5-10.5); Carbon Dioxide 18 mmol/L (22-29); Chloride 107 mmol/L (98-107); Glomerular Filtration Rate 96.4 mL/min (90-130); Glucose 81 mg/dL (65-115); Osmolality Calculated 284 mOsm/kg (285-295); Sodium 138 mmol/L (136-145); Total Bilirubin 0.2 mg/dL (0.15-1.2)
[2022-06-27 14:00] VITALS: BP 129/89; PULSE 86; RESP 18; TEMP 36.5; O2SAT 97
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
[2022-06-27] MEDS: topiramate 100 mg Tablet PO (20:18)
--- NOTE | 2022-06-27 20:20 | PC.NURSE ---
PRN zyprex for agitation given as ordered per pt request.
[2022-06-27 22:00] VITALS: BP 119/86; PULSE 94; RESP 16; TEMP 36.4; O2SAT 100
[2022-06-28 06:00] VITALS: RESP 14
[2022-06-28] MEDS: levothyroxine 150 mcg Tablet 75 MCG PO (06:05)
[2022-06-28] MEDS: buPROPion XL (24 HR) 150 mg Tablet PO (09:14)
[2022-06-28] MEDS: buPROPion XL (24 HR) 300 mg Tablet PO (09:15)
[2022-06-28] MEDS: propranolol 20 mg Tablet 10 MG PO ×2 (09:15→20:07)
[2022-06-28] MEDS: OLANZapine 5 mg ODT PO (12:42)
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
[2022-06-28 14:00] VITALS: BP 117/77; PULSE 83; RESP 18; TEMP 36.4; O2SAT 98
[2022-06-28] MEDS: ARIPiprazole 10 mg Tablet 5 MG PO (15:09)
[2022-06-28] MEDS: topiramate 100 mg Tablet PO (20:07)
[2022-06-28] MEDS: CLONazepam 0.5 mg Tablet 0.25 MG PO (21:08)
--- NOTE | 2022-06-28 21:10 | PC.NURSE ---
PRN Klonopin given as ordered per pt complaint of high anxiety rating it a 9 out of 10.
[2022-06-28 22:00] VITALS: BP 121/76; PULSE 97; RESP 17; TEMP 36.4; O2SAT 100
[2022-06-29 06:00] VITALS: RESP 14
[2022-06-29] MEDS: levothyroxine 150 mcg Tablet 75 MCG PO (06:12)
[2022-06-29] MEDS: buPROPion XL (24 HR) 300 mg Tablet PO (08:15)
[2022-06-29] MEDS: propranolol 20 mg Tablet 10 MG PO ×2 (08:15→21:01)
[2022-06-29] MEDS: buPROPion XL (24 HR) 150 mg Tablet PO (08:15)
[2022-06-29] MEDS: ARIPiprazole 10 mg Tablet PO (08:15)
[2022-06-29] MEDS: hyDROXYzine 25 mg Capsule 50 MG PO ×2 (08:15→21:01)
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
[2022-06-29] MEDS: CLONazepam 0.5 mg Tablet 0.25 MG PO ×2 (09:21→21:01)
[2022-06-29 14:00] VITALS: BP 108/85; PULSE 98; RESP 18; TEMP 36.7; O2SAT 100
--- NOTE | 2022-06-29 18:34 | NPU.GN ---
[facility] Group Topic:Painting for relaxation General Mood of Group- Patient participated by painting a collage with lettering of hope, love , and peace. Patient discussed her family and how this made her feel.
[2022-06-29] MEDS: topiramate 100 mg Tablet PO (21:01)
[2022-06-29 22:00] VITALS: BP 136/90; PULSE 81; RESP 18; TEMP 36.8; O2SAT 96
[2022-06-30 06:00] VITALS: RESP 16
[2022-06-30] MEDS: propranolol 20 mg Tablet 10 MG PO ×2 (08:16→20:09)
[2022-06-30] MEDS: levothyroxine 150 mcg Tablet 75 MCG PO (08:16)
[2022-06-30] MEDS: buPROPion XL (24 HR) 150 mg Tablet PO (08:17)
[2022-06-30] MEDS: buPROPion XL (24 HR) 300 mg Tablet PO (08:17)
[2022-06-30] MEDS: ARIPiprazole 10 mg Tablet PO (08:17)
[2022-06-30] MEDS: CLONazepam 0.5 mg Tablet 0.25 MG PO ×2 (08:17→20:11)
--- NOTE | 2022-06-30 08:17 | PC.NURSE ---
PRN KLONOPIN 0.25 MG GIVEN PO PER PT C/O STATED ANXIETY
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
[2022-06-30 14:00] VITALS: BP 125/76; PULSE 99; RESP 18; TEMP 36.6; O2SAT 99
[2022-06-30] MEDS: topiramate 100 mg Tablet PO (20:09)
[2022-06-30 20:53] VITALS: BP 126/89; PULSE 95; RESP 18; TEMP 36.8; O2SAT 100
[2022-07-01 06:00] VITALS: BP 121/84; PULSE 82; RESP 16; TEMP 36.7; O2SAT 99
[2022-07-01] MEDS: propranolol 20 mg Tablet 10 MG PO (08:46)
[2022-07-01] MEDS: buPROPion XL (24 HR) 150 mg Tablet PO (08:47)
[2022-07-01] MEDS: buPROPion XL (24 HR) 300 mg Tablet PO (08:47)
[2022-07-01] MEDS: levothyroxine 75 mcg Tablet PO (08:47)
[2022-07-01] MEDS: ARIPiprazole 10 mg Tablet PO (08:48)
[2022-07-01] MEDS: CLONazepam 0.5 mg Tablet 0.25 MG PO (08:50)
--- NOTE | 2022-07-01 08:55 | PC.NURSE ---
Administered klonopin 0.25mg PO to patient for anxiety rated 8/10. Attempts to distract/redirect were unsuccessful.
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
[2022-07-01] MEDS: hyDROXYzine 25 mg Capsule 50 MG PO (12:36)
--- NOTE | 2022-07-01 12:37 | PC.NURSE ---
Patient rating anxiety 8/10. Patient requesting medication for anxiety after nonpharm. measures not successful. Will continue to monitor.
--- NOTE | 2022-07-01 12:54 | DCPLANNER ---
IMM was printed and pt rights were given to pt and copy placed in pt file.
[2022-07-01 13:14] VITALS: BP 121/84; PULSE 82; RESP 16; TEMP 36.7; O2SAT 99
== END 2022-07-01 14:37 | disposition home or self-care (01) | DRG 885 ==
LOC: ER 01:05 → NP 06:57
PROVIDERS: Admitting Provider Psychiatry & Neurology Psychiatry; Emergency Provider Nurse Practitioner Family; PCP Nurse Practitioner Family; Visit Provider Psychiatry & Neurology Psychiatry
DX: F33.9 Major depressive disorder, recurrent, unspecified (principal); R45.851 Suicidal ideations; F12.90 Cannabis use, unspecified, uncomplicated; F15.91 Other stimulant use, unspecified, in remission; Z63.0 Problems in relationship with spouse or partner; F43.10 Post-traumatic stress disorder, unspecified; F41.1 Generalized anxiety disorder; F17.210 Nicotine dependence, cigarettes, uncomplicated; I45.81 Long QT syndrome
CPT/HCPCS: 36415; 80053; 80306; 80307; 81003; 81025; 84443; 85025; 97150; 97165; 99285

== ENCOUNTER 2022-07-12 16:15 | Inpatient (IN) | payer MEDICARE, MEDICAID, SELFPAY ==
[2022-07-12 16:16] VITALS: BP 111/93; PULSE 93; RESP 16; TEMP 36.6; O2SAT 100
--- NOTE | 2022-07-12 17:05 | PC.NURSE ---
Pt sitting up on side of bed and dressed out in green scrubs.
--- NOTE | 2022-07-12 17:06 | ECG_ITS ---
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 Measurements Intervals [place] Rate: 80 P: 42 WA: 127 QRS: 53 QRSD: 87 T: 80 QT: 386 QTc: 445 Interpretive Statements SINUS RHYTHM NONSPECIFIC ST & T-WAVE ABNORMALITY Compared to ECG 02/10/2022 09:49:06 T-wave abnormality now present ST (T wave) deviation no longer present Electronically Signed On 07-12-2022 23:03:04 CDT by Howie Toscano M.D. [email or web address]
--- NOTE | 2022-07-12 17:35 | W.ED.PSYCHS ---
HPI - Psych General: Chief Complaint: Psychiatric Symptoms Stated Complaint: 96 hour hold Time Seen by Provider: 07/12/22 16:20 History of Present Illness: 32-year-old female presents emergency department chief complaint of psychosis as well as being presented here and under the 96-hour hold per family's concerns patient apparently has a history of mental health issues in which she was recently admitted to our n.p.o. about 2 weeks ago in which she had was debating on committing suicide with the use of a handgun the patient appears per family have disorganized speech in which she has been manic patient is having no history of psychiatric issues. Patient does not recall any recent drugs or alcohol usage. However there is concerns about safety based on her family's testimony due to this this was provided from the court in which the chaser helper signed a 96-hour prison hold. Patient presents here for further assessment and management Associated symptoms: Reports depression Review of Systems General: Reports: 10 or more systems reviewed and unremarkable except in HPI and below Const: Denies: fever(s), chills, fatigue or malaise Eyes: Denies: change in vision or blurry vision Card: Denies: chest pain or palpitations Resp: Denies: dyspnea or productive cough GI: Denies: abdominal pain, nausea or vomiting : Denies: flank pain Musc: Denies: extremity pain or extremity swelling Skin/Breast: Denies: rash or pruritus Neuro: Denies: headache(s) Psych: Reports: anxiety and depression Gee/Lymph: Denies: easy bleeding All/Imm: Denies: urticaria, throat swelling or facial swelling PFS ED PFSH: Medical History Cannabis use disorder Encounter for psychiatric assessment Generalized anxiety disorder Heroin use disorder, moderate, in sustained remission, dependence History of hypertension Major depressive disorder, recurrent Methamphetamine use disorder, mild, in early remission Psychiatric care PTSD (post-traumatic stress disorder) Tobacco use disorder Surgical History H/O left knee surgery History of back surgery History of loop recorder Family History Mother Psychiatric illness Diabetes Stroke Hypertension Sister Psychiatric illness Grandfather No problems noted. 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 Pets and animals: Yes Physical Exam Const: COMMON NORMALS: no acute distress, patient oriented x3 and healthy appearing HENMT: COMMON NORMALS: normocephalic and atraumatic HEAD & SCALP: normocephalic and atraumatic Eye: COMMON NORMALS: Equal, round and reactive pupils present and EOMs intact bilaterally PUPIL: Yes Equal, round and reactive pupils present Neck/C-Spine: COMMON NORMALS: full ROM, supple and no JVD Lymph: LYMPHATIC: no lymphadenopathy noted Chest: COMMONS NORMALS: normal inspection of the chest and normal palpation of entire chest wall Resp: COMMON NORMALS: normal respiratory effort, No retractions and clear to auscultation bilaterally EFFORT & INSPECTION: Yes able to speak in complete sentences and Yes symmetric chest movement AUSCULTATION: clear to auscultation bilaterally Cardio: COMMON NORMALS: no JVD, regular rate and regular rhythm RATE: regular rate RHYTHM: regular rhythm GI: COMMON NORMALS: Normal to inspection, nondistended, normoactive bowel sounds present, Soft to palpation and non-tender INSPECTION: Yes normal to inspection PALPATION: Yes Soft to palpation : COMMON NORMALS: Yes no CVA tenderness BLADDER/KIDNEY EXAM: Yes no CVA tenderness Back/Pelvis: COMMON NORMALS: no CVA tenderness Extremity: COMMON NORMALS: normal to inspection and full ROM Neuro: COMMON NORMALS: patient oriented x3, CN's II-XII intact bilaterally, moves all extremities and no focal motor deficits Psych: COMMON NORMALS: mental status grossly normal, Normal thought process present (Upon direct questioning patient did not report any homicidal suicidal thoug), cooperative and normal affect THOUGHT PROCESS: Normal thought process present (Upon direct questioning patient did not report any homicidal suicidal thoug) Skin: COMMON NORMALS: no rashes or lesions noted GENERAL SKIN EXAM: no rashes or lesions noted Course Vital Signs: Vital signs: Vital Signs Temperature 97.9 F 07/12/22 16:16 Pulse Rate 93 07/12/22 16:16 Respiratory Rate 16 07/12/22 16:16 Blood Pressure 111/93 07/12/22 16:16 Pulse Oximetry 100 07/12/22 16:16 Oxygen Delivery Me thod Room Air 07/12/22 16:16 MDM - Psych Medical Decision Making Discussed patient's case with Dr. Juarez psychiatrist who is in charge of the [employer] you he does recall this patient is quite case quite well from 2 weeks ago he recommends voluntary inpatient placement at this time to the [facility] for further assessment and management we will continue to follow with doing medical screening examination and treat as needed. Discussed with patient in regards to need for admission n.p.o. the patient has agreed at this time, the patient will be voluntary placement. Lab Data 07/12/22 18:19 07/12/22 18:19 Laboratory Results Urine Color Dark yellow (Yellow) 07/12/22 16:14 Urine Appearance Sl hazy (CLEAR) A 07/12/22 16:14 Urine pH 6.5 (5-7) 07/12/22 16:14 Ur Specific [place] 1.020 (1.005-1.030) 07/12/22 16:14 Urine Protein Neg (Negative) 07/12/22 16:14 Urine Glucose (UA) Norm (Normal) 07/12/22 16:14 Urine Ketones Negative (Negative) 07/12/22 16:14 Urine Blood Neg (Negative) 07/12/22 16:14 Urine Nitrate Negative (Negative) 07/12/22 16:14 Urine Bilirubin Neg (Negative) 07/12/22 16:14 Urine Urobilinogen Norm mg/dL (Negative) 07/12/22 16:14 Ur Leukocyte Esterase Negative (Negative) 07/12/22 16:14 Urine Opiates Screen Negative ng/mL (Negative) 07/12/22 16:14 Ur Barbiturates Screen Negative ng/mL (Negative) 07/12/22 16:14 Ur Phencyclidine Scrn Negative ng/mL (Negative) 07/12/22 16:14 Ur Amphetamines Screen Negative ng/mL (Negative) 07/12/22 16:14 U Benzodiazepines Scrn Negative ng/mL (Negative) 07/12/22 16:14 Urine Cocaine Screen Negative ng/mL (Negative) 07/12/22 16:14 U Marijuana (THC) Screen Positive ng/mL (Negative) H 07/12/22 16:14 Discharge Plan Discharge Patient Disposition: Admitted As Inpatient Admit Provider: Sim Juarez Clinical Impression: Polysubstance abuse, Depression Condition: Stable Coding Level of Care Code ED Telecommunications Administrator for Katerina Zacarias
[2022-07-12 18:25] LABS: Basophils % 0.5 %; Hematocrit 43.5 % (37.0-47.0); Hemoglobin 14.4 g/dL (11.5-15.3); Lymphocytes # 2.5 10^3/uL (0.8-4.8); Lymphocytes % 29.3 %; Mean Corpuscular HGB Conc 33.1 g/dL (30.0-36.0); Mean Corpuscular Hemoglobin 29.4 pg (28.0-34.0); Mean Platelet Volume 8.9 fL (7.4-10.4); Monocytes # 0.6 10^3/uL (0.2-0.9); Monocytes % 6.9 %; Neutrophils # 5.27 10^3/uL (1.8-7.7); Neutrophils % 62.9 %; Nucleated Red Blood Cells % 0 %; Platelet Count 293 10^3/cmm (130-400); Red Blood Count 4.89 10^6/uL (4.1-5.3); White Blood Count 8.4 10^3/uL (4.0-10.0)
[2022-07-12 18:46] LABS: Alanine Aminotransferase 11 U/L (0-33); Albumin Level 4.1 g/dL (3.5-5.2); Alkaline Phosphatase 90 U/L (35-105); Anion Gap 11.2 (5-19); Aspartate Amino Transferase 11 U/L (0-32); Blood Urea Nitrogen 9 mg/dL (6-20); Calcium 8.4 mg/dL (8.5-10.5); Carbon Dioxide 25 mmol/L (22-29); Chloride 110 mmol/L (98-107); Globulin 2.3 g/dL (1.3-4.6); Glomerular Filtration Rate 96.4 mL/min (90-130); Glucose 100 mg/dL (65-115); Osmolality Calculated 295 mOsm/kg (285-295); Potassium 3.2 mmol/L (3.5-5.1); Sodium 143 mmol/L (136-145); Total Bilirubin 0.2 mg/dL (0.15-1.2); Total Protein 6.4 g/dL (6.6-8.7)
[2022-07-12 18:57] LABS: Add Urine Microscopic? NO; Charge for UA Resulting for Rev
[2022-07-12 19:03] LABS: Acetaminophen < 5.0 ug/mL (10-30); Alcohol Level < 10 mg/dL (0-10); Salicylate < 0.3 mg/dL (3-10)
--- NOTE | 2022-07-12 19:28 | PC.NURSE ---
Patient served and reviewed with 96 hr rights. Patient copy left at bedside. Anup with Security assisted Dye Operator in 96 hr process review. No questions for Dye Operator at this time.
[2022-07-12 19:30] LABS: Bilirubin Urine Neg (Negative); Blood Urine Neg (Negative); Glucose Urine UA Norm (Normal); Ketones Urine Negative (Negative); Leukocyte Esterase Urine Negative (Negative); Nitrate Urine Negative (Negative); Protein Urine Neg (Negative); Urine Appearance SL Hazy (CLEAR); Urine Color Dark Yellow (Yellow); Urobilinogen Urine Norm (Negative); pH Urine 6.5 (5-7)
[2022-07-12 19:45] LABS: Amphetamines Screen Urine Negative (Negative); Barbiturates Screen Urine Negative (Negative); Benzodiazepines Screen Urine Negative (Negative); Cocaine Screen Urine Negative (Negative); Opiate Screen Urine Negative (Negative); PCP Screen Urine Negative (Negative); THC Screen Urine Positive (Negative)
[2022-07-12 20:19] VITALS: BP 101/57; PULSE 70; RESP 18; TEMP 36.6; O2SAT 96
[2022-07-12 20:45] VITALS: BP 111/78; PULSE 76; RESP 18; TEMP 37; O2SAT 99
[2022-07-12 21:52] VITALS: BP 111/78; PULSE 76; RESP 18; TEMP 37; O2SAT 99
[2022-07-12] MEDS: CLONazepam 0.5 mg Tablet PO (21:52)
[2022-07-12] MEDS: topiramate 100 mg Tablet PO (21:52)
--- NOTE | 2022-07-12 21:52 | PC.NURSE ---
PRN Klonopin given for anxiety per pt request.
[2022-07-13] MEDS: buPROPion XL (24 HR) 300 mg Tablet PO (05:47)
[2022-07-13] MEDS: buPROPion XL (24 HR) 150 mg Tablet PO (05:48)
[2022-07-13 06:00] VITALS: RESP 16
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
[2022-07-13] MEDS: ARIPiprazole 10 mg Tablet PO (09:06)
[2022-07-13] MEDS: CLONazepam 0.5 mg Tablet PO ×2 (09:06→18:56)
[2022-07-13] MEDS: propranolol 20 mg Tablet 10 MG PO ×2 (09:07→17:51)
[2022-07-13] MEDS: levothyroxine 75 mcg Tablet PO (09:07)
--- NOTE | 2022-07-13 12:13 | PC.OT ---
OT EVALUATION ATTEMPTED. PATIENT SLEEPING SOUNDLY; WILL ATTEMPT AGAIN AT A LATER TIME
[2022-07-13 14:00] VITALS: BP 118/84; PULSE 77; RESP 16; TEMP 36.8; O2SAT 96
[2022-07-13] MEDS: hyDROXYzine 25 mg Capsule 50 MG PO (19:50)
[2022-07-13] MEDS: topiramate 100 mg Tablet PO (19:50)
[2022-07-13] MEDS: acetaminophen 325 mg Tablet 650 MG PO (19:50)
[2022-07-13 21:14] VITALS: BP 110/70; PULSE 79; RESP 16; TEMP 36.4; O2SAT 98
[2022-07-14 06:00] VITALS: RESP 16
[2022-07-14] MEDS: propranolol 20 mg Tablet 10 MG PO ×2 (08:26→17:42)
[2022-07-14] MEDS: levothyroxine 75 mcg Tablet PO (08:26)
[2022-07-14] MEDS: buPROPion XL (24 HR) 300 mg Tablet PO (08:26)
[2022-07-14] MEDS: ARIPiprazole 10 mg Tablet PO (08:26)
[2022-07-14] MEDS: buPROPion XL (24 HR) 150 mg Tablet PO (08:26)
[2022-07-14] MEDS: CLONazepam 0.5 mg Tablet PO ×2 (08:26→19:56)
--- NOTE | 2022-07-14 08:27 | PC.NURSE ---
Addendum entered by Peri Stevens LPN 07/14/22 14:33: prn med effective no further c/o anxiety currently Original Note: PRN KLONOPIN 0.5 MG GIVEN PO PER PT REQUEST & C/O STATED ANXIETY. DOES NOT APPEAR ANXIOUS, PLEASANT WITH ALL STAFF INTERACTION
[2022-07-14 14:00] VITALS: BP 107/73; PULSE 85; RESP 16; TEMP 36.5; O2SAT 95
--- NOTE | 2022-07-14 16:08 | PC.NURSE ---
out on the patio for group therapy
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
--- NOTE | 2022-07-14 16:32 | ECG_ITS ---
[facility] Test Date: 2022-07-14 Pat Name: Dory Howard Department: Room: 128 Gender: Female Rpg Programmer: : 1990 Requested By: Jasmeet Zavala Order Number: [id number] Jason MD: Tylor Lopes M.D. Measurements Intervals [place] Rate: 82 P: 0 SD: 0 QRS: 123 QRSD: 87 T: 136 QT: 408 QTc: 478 Interpretive Statements Sinus rhythm with PVCs RIGHT AXIS DEVIATION [QRS AXIS > 100] Compared to ECG 07/12/2022 17:29:42 Ventricular premature complex(es) now present Aberrant conduction of supraventricular beat(s) now present Right-axis deviation now present T-wave abnormality no longer present Electronically Signed On 07-15-2022 17:10:58 CDT by Tylor Lopes M.D. [id number]
[2022-07-14] MEDS: topiramate 100 mg Tablet PO (20:00)
[2022-07-14 20:07] VITALS: BP 111/76; PULSE 76; RESP 16; TEMP 36.3; O2SAT 98
[2022-07-15 06:00] VITALS: BP 98/52; PULSE 76; RESP 16; TEMP 36.3; O2SAT 99
[2022-07-15] MEDS: ARIPiprazole 10 mg Tablet 15 MG PO (07:47)
[2022-07-15] MEDS: buPROPion XL (24 HR) 150 mg Tablet PO (07:47)
[2022-07-15] MEDS: buPROPion XL (24 HR) 300 mg Tablet PO (07:47)
[2022-07-15] MEDS: propranolol 20 mg Tablet 10 MG PO ×2 (07:48→17:20)
[2022-07-15] MEDS: levothyroxine 75 mcg Tablet PO (07:49)
[2022-07-15] MEDS: CLONazepam 0.5 mg Tablet PO ×2 (07:50→17:20)
--- NOTE | 2022-07-15 07:51 | PC.NURSE ---
Patient rating anxiety 9/10. Patient requested her clonazepam. Encouraged patient to try deep breathing exercises, which were not successful, per patient. Administered 0.5mg clonazepam to patient. Will continue to monitor.
--- NOTE | 2022-07-15 10:35 | PC.NURSE ---
attended Goals group @ [id number]
[2022-07-15 14:00] VITALS: BP 101/68; PULSE 78; RESP 16; TEMP 36.9; O2SAT 99
--- NOTE | 2022-07-15 16:52 | P.NPUPN_ITS ---
Subjective NPU Subjective: The patient is a 32-year-old white female recently discharged from the neuropsychiatric unit with a history of depression along with a history of long QT syndrome. The patient did not endorse any suicidal thoughts. She reports that she had gone to [place] with her son on a visit and stated that she understood that this could be considered a violation of her visitation rights but stated that she had no plans to kidnap her child. Patient had reported that she would like to change her current living situation when discharged. She reported that she had been feeling that her mood was more stable with the increase in Abilify to 15 mg with no side effects reported. Baseline EKG was performed last night prior to the initiation of the increase in Abilify this morning. Mental Status Exam MSE Comments: This is an overweight versus obese white female in hospital scrubs with adequate grooming and eye contact. Absent dentition. No abnormal movements except for mild psychomotor retardation. Cooperative exam in no acute distress. Speech was slightly decreased rate and volume. Mood described as okay. Her affect remained restricted in range. Thought process was linear and organized. Thought content: Patient denied suicidal or homicidal ideation, there are no delusions reported or noted, there are no auditory and visual hallucinations reported. Attention and concentration appear intact and memory appear mostly reliable but none were formally tested. She is alert and oriented x3. Insight and judgment limited. impulse control appears limited. Vitals/I&O/Wt Last Vital Signs Temp 98.5 F 07/15/22 14:00 Pulse 78 07/15/22 14:00 Resp 16 07/15/22 14:00 BP 101/68 07/15/22 14:00 Pulse Ox 99 07/15/22 14:00 O2 Del Method Room Air 07/15/22 14:00 Weight last 48 hrs Weight 76.566 kg Data NPU 07/12/22 18:19 07/12/22 18:19 A&P Assessment and plan (1) Major depressive disorder, recurrent: (2) PTSD (post-traumatic stress disorder): (3) Cannabis use disorder: (4) Generalized anxiety disorder: (5) Long QT interval: Plan Patient is a 31-year-old white female with a history of MDD, PTSD long QT syndrome currently hospitalized with concern regarding alleged worsening psychosis per affadavit. 1 Abilify 15mg in am. Continue Klonopin as prescribed along with wellbutrin xl 450mg daily. 2.? Encourage individual, group and milieu therapy 3.? Continue q-15 minute check for safety 4.? Recommend sober living treatment at the highest level of care to which the patient is willing to commit. Involuntary Hold Information 96 Hour Hold: 96 Hour Involuntary Admission: Yes 96 Hour Hold Ending Date: 07/18/22 96 Hour Hold Ending Time: 17:38 Attestations NPU Medical Necessity Statement*: Inpatient hospitalization is medically necessary and the clinically appropriate intervention at this time. Patient will be in the hospital for at least 2 mi dnights. We will monitor medications and make changes as indicated with a likely length of stay is 3-5 days. Coding Level of Care Code Acute Code for Chg Fwd Diagnoses Major depressive disorder, recurrent F33.9 PTSD (post-traumatic stress disorder) F43.10 Cannabis use disorder F12.90 Generalized anxiety disorder F41.1 Long QT interval R94.31
[2022-07-15 20:06] VITALS: BP 96/65; PULSE 79; RESP 18; TEMP 36.2; O2SAT 97
[2022-07-15] MEDS: topiramate 100 mg Tablet PO (20:33)
[2022-07-15] MEDS: hyDROXYzine 25 mg Capsule 50 MG PO (20:33)
[2022-07-16] MEDS: ARIPiprazole 10 mg Tablet 15 MG PO (08:10)
[2022-07-16] MEDS: levothyroxine 75 mcg Tablet PO (08:10)
[2022-07-16] MEDS: CLONazepam 0.5 mg Tablet PO ×2 (08:11→17:48)
[2022-07-16] MEDS: buPROPion XL (24 HR) 150 mg Tablet PO (08:11)
[2022-07-16] MEDS: buPROPion XL (24 HR) 300 mg Tablet PO (08:11)
--- NOTE | 2022-07-16 08:13 | PC.NURSE ---
Propranolol not given because of BP: 86/64
--- NOTE | 2022-07-16 13:33 | ECG_ITS ---
[facility] Test Date: 2022-07-16 Pat Name: Dory Howard Department: Room: 128 Gender: Female Radiation Oncology Therapist: : 1990 Requested By: Jasmeet Zavala Order Number: [id number] Jason MD: Howie Toscano M.D. Measurements Intervals [place] Rate: 81 P: 41 MA: 127 QRS: 49 QRSD: 90 T: 62 QT: 408 QTc: 476 Interpretive Statements SINUS RHYTHM WITH OCCASIONAL VENTRICULAR PREMATURE COMPLEXES NONSPECIFIC T-WAVE ABNORMALITY Compared to ECG 07/14/2022 17:13:10 T-wave abnormality now present Right-axis deviation no longer present Electronically Signed On 07-16-2022 16:59:53 CDT by Howie Toscano M.D. [id number]
[2022-07-16 14:00] VITALS: BP 116/77; PULSE 95; RESP 16; TEMP 37.1; O2SAT 98
[2022-07-16] MEDS: hyDROXYzine 25 mg Capsule 50 MG PO ×2 (15:05→20:11)
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
--- NOTE | 2022-07-16 15:41 | P.NPUPN_ITS ---
Subjective NPU Subjective: The patient is a 32-year-old white female recently discharged from the neuropsychiatric unit with a history of depression along with a history of long QT syndrome. The patient had appeared less isolative to live on the milieu. She had reported that she wished to return to live with her mother in [place] and consider a change in her treatment provider. She stated that she was feeling better on the adjustment with Abilify with no cardiac symptoms noted. Repeat EKG showed no increase in the QTc interval. Patient reported no feelings of hopelessness. She stated that she had no desire to return to be with her ex boyfriend. She had reported feeling less frustrated and reported so me improvement in overall energy with the Latuda at this time. Mental Status Exam MSE Comments: This is an overweight versus obese white female in hospital scrubs with adequate grooming and eye contact. Absent dentition. No abnormal movements except for mild psychomotor retardation. Cooperative exam in no acute distress. Speech was more productive with normal rate rhythm and prosody. Mood described as better. Her affect was restricted. Thought process was linear and organized. Thought content: Patient denied suicidal or homicidal ideation, there are no delusions reported or noted, there are no auditory and visual hallucinations reported. Attention and concentration appear intact and memory appear mostly reliable but none were formally tested. She is alert and oriented x3. Insight and judgment appear to be improving. Impulse control appears limited. Vitals/I&O/Wt Last Vital Signs Temp 98.8 F 07/16/22 14:00 Pulse 95 07/16/22 14:00 Resp 16 07/16/22 14:00 BP 116/77 07/16/22 14:00 Pulse Ox 98 07/16/22 14:00 O2 Del Method Room Air 07/16/22 14:00 Weight last 48 hrs Weight 76.566 kg Data NPU 07/12/22 18:19 07/12/22 18:19 A&P Assessment and plan (1) Major depressive disorder, recurrent: (2) PTSD (post-traumatic stress disorder): (3) Cannabis use disorder: (4) Generalized anxiety disorder: (5) Long QT interval: Plan Patient is a 31-year-old white female with a history of MDD, PTSD long QT syndrome currently hospitalized with concern regarding alleged worsening psychosis per affadavit. 1 Abilify 15mg in am. No increase in QTc (remains around 476-478 ) Continue Klonopin as prescribed along with wellbutrin xl 450mg daily. 2.? Encourage individual, group and milieu therapy 3.? Continue q-15 minute check for safety 4.? Recommend sober living treatment at the highest level of care to which the patient is willing to commit. Involuntary Hold Information 96 Hour Hold: 96 Hour Involuntary Admission: Yes 96 Hour Hold Ending Date: 07/18/22 96 Hour Hold Ending Time: 17:38 Attestations NPU Medical Necessity Statement*: Inpatient hospitalization is medically necessary and the clinically appropriate intervention at this time. Patient will be in the hospital for at least 2 midnights. We will monitor medications and make changes as indicated with a likely length of stay is 3-5 days. Coding Level of Care Code Acute Code for Chg Fwd Diagnoses Major depressive disorder, recurrent F33.9 PTSD (post-traumatic stress disorder) F43.10 Cannabis use disorder F12.90 Generalized anxiety disorder F41.1 Long QT interval R94.31
[2022-07-16] MEDS: topiramate 100 mg Tablet PO (20:11)
[2022-07-16 22:00] VITALS: BP 96/68; PULSE 99; RESP 16; TEMP 36.3; O2SAT 98
[2022-07-17 06:00] VITALS: RESP 15
[2022-07-17 08:37] VITALS: BP 104/72; PULSE 91; RESP 16; TEMP 36.4; O2SAT 99
[2022-07-17] MEDS: buPROPion XL (24 HR) 150 mg Tablet PO (08:39)
[2022-07-17] MEDS: propranolol 20 mg Tablet 10 MG PO (08:39)
[2022-07-17] MEDS: CLONazepam 0.5 mg Tablet PO (08:39)
[2022-07-17] MEDS: levothyroxine 75 mcg Tablet PO (08:39)
[2022-07-17] MEDS: ARIPiprazole 10 mg Tablet 15 MG PO (08:39)
[2022-07-17] MEDS: buPROPion XL (24 HR) 300 mg Tablet PO (08:39)
[2022-07-17] MEDS: hyDROXYzine 25 mg Capsule 50 MG PO (11:13)
--- NOTE | 2022-07-17 12:04 | DCPLANNER ---
IMM was printed and rights explained and given to pt and a copy was placed in pts file.
[2022-07-17 13:08] VITALS: BP 128/96; PULSE 91; RESP 17; TEMP 36.7; O2SAT 99
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
[2022-07-17 14:40] VITALS: BP 128/96; PULSE 91; RESP 17; TEMP 36.7; O2SAT 99
[2022-07-17] MEDS: acetaminophen 325 mg Tablet 650 MG PO (14:49)
--- NOTE | 2022-07-17 15:21 | PC.NURSE ---
written discharge instruction discussed and left with patient. pt stated understanding and compliance of discharge instruction. pt left with father in POV.
== END 2022-07-17 15:35 | disposition home or self-care (01) | DRG 885 ==
LOC: ER 17:38 → NP 18:04
PROVIDERS: Admitting Provider Psychiatry & Neurology Psychiatry; Emergency Provider Emergency Medicine; PCP Nurse Practitioner Family; Visit Provider Psychiatry & Neurology Psychiatry
DX: F33.9 Major depressive disorder, recurrent, unspecified (principal); F12.90 Cannabis use, unspecified, uncomplicated; F16.21 Hallucinogen dependence, in remission; F15.91 Other stimulant use, unspecified, in remission; F41.1 Generalized anxiety disorder; F43.10 Post-traumatic stress disorder, unspecified; F17.210 Nicotine dependence, cigarettes, uncomplicated; I45.81 Long QT syndrome
CPT/HCPCS: 36415; 80053; 80306; 80307; 81003; 85025; 93005; 97150; 97165; 99285